=== PATIENT | male | born 1945 | race Caucasian/White ===

== ENCOUNTER → 2017-03-27 | Outpatient (CLI) | payer MEDICARE, BC ==
--- NOTE | 2017-03-27 11:42 | CT ---
EXAMINATION TYPE: CT brain wo con DATE OF EXAM: 03/27/2017 HISTORY: [facility] CT DLP: 1014.7 mGycm. Automated Exposure Control for Dose Reduction was Utilized. TECHNIQUE: CT scan of the head is performed without contrast. COMPARISON: CT brain September 23, 2014. FINDINGS: There is no acute intracranial hemorrhage or midline shift identified. There is diffuse v entricular and sulcal prominence consistent with diffuse age-related cerebral atrophy. The globes ar e intact and the visualized sinuses are clear. IMPRESSION: No acute intracranial hemorrhage or midline shift. There is mild diffuse age-related ce rebral atrophy redemonstrated. No significant change from prior study is seen.
== END | disposition home or self-care (01) ==
LOC: RADCTMAIN 11:05
PROVIDERS: ATTEND Internal Medicine
DX: G31.9 Degenerative disease of nervous system, unspecified (principal); R51 Headache
CPT/HCPCS: 70450

== ENCOUNTER → 2017-04-29 | Outpatient (CLI) | payer MEDICARE, BC ==
--- NOTE | 2017-04-29 14:18 | MR ---
EXAMINATION TYPE: MR shoulder LT wo con DATE OF EXAM: 04/29/2017 COMPARISON: Plain film dated 04/15/2017 HISTORY: Left shoulder pain TECHNIQUE: Multiplanar, multisequence imaging of the left shoulder is performed without contrast. FINDINGS: Rotator Cuff: There is rotator cuff tear with retraction to the level of the acromioclavicular joint. Acromioclavicular Joint: Hypertrophic changes present at the acromion clavicular joint Glenohumeral Joint: Intact Labrum: The labrum appears grossly intact given limitation of non-arthrogram study. Biceps Tendon: Displaced anteriorly. There is fluid signal present within the tendon sheath with some additional low-level internal debris suspected. Bone marrow signal: Pseudocysts present within the humeral head. Other: There is a joint effusion present. Fluid signal courses along the subscapularis tendon. Puncta te foci of intermediate signal present within the joint effusion may represent loose bodies. IMPRESSION: Rotator cuff tear with retraction. There may be small loose bodies. Dislocation of the long head of b iceps tendon.
== END | disposition home or self-care (01) ==
LOC: RADMRIMAIN 08:38
PROVIDERS: ATTEND Orthopaedic Surgery
DX: S43.005A Unspecified dislocation of left shoulder joint, initial encounter (principal); M75.102 Unspecified rotator cuff tear or rupture of left shoulder, not specified as traumatic

== ENCOUNTER → 2017-09-01 | Outpatient (CLI) | payer MEDICARE, BC ==
--- NOTE | 2017-09-01 15:54 | US ---
EXAMINATION TYPE: US kidneys/renal and bladder DATE OF EXAM: 09/01/2017 COMPARISON: CT 05/21/2013 CLINICAL HISTORY: 71-year-old male R31.9 Hematuria. TECHNIQUE: Multiple sonographic images of the kidneys and bladder were obtained. FINDINGS: Right Kidney: 11.5 x 5.6 x 5.6 cm without hydronephrosis. There is a 5 mm echogenic focus at the mid pole, likely nonobstructive calculus. Left Kidney: 11.5 x 6.3 x 6.0 cm without hydronephrosis. There is a septated cyst at the midpole bridget uring 1.8 x 1.8 x 2.0 cm. Additionally, echogenic foci are present just above measuring 10 x 8 x 5 mm . Bladder: Prostate gland is enlarged measuring 5.1 cm wide impressing on the posterior bladder base. T he ureteral jets are visualized. IMPRESSION: 1. No hydronephrosis. 2. Mildly complex cyst measuring 2.0cm left kidney. A lesion on CT from 2012, measured 1.6 cm. A la ign cyst is favored. 6 month follow-up ultrasound can reassess. 3. 5 mm echogenic focus in the right kidney and 1.0 cm in the left kidney suggestive of nonobstructiv e calculi. 4. Prostatomegaly (5.1 cm wide). Given impression onto the posterior bladder base, correlate for any symptoms of BPH.
== END | disposition home or self-care (01) ==
LOC: RADUSWWP 14:36
PROVIDERS: ATTEND Internal Medicine
DX: N28.1 Cyst of kidney, acquired (principal); N40.0 Benign prostatic hyperplasia without lower urinary tract symptoms
CPT/HCPCS: 76770

== ENCOUNTER 2017-10-02 07:54 | Emergency (ER) | payer MEDICARE, BC ==
[2017-10-02] MEDS ORDERED: SODIUM CHLORIDE 0.9% 1,000 ML IV STA (08:09)
--- NOTE | 2017-10-02 08:20 | ED ---
Dizziness HPI - General Chief Complaint: Syncope Stated Complaint: Syncope Time Seen by Provider: 10/02/17 07:58 Source: patient Mode of arrival: ambulatory Limitations: no limitations - History of Present Illness Initial Comments: 73 years old male was accompanying his , she is having a surgery today and Oanh Mosqueda he was with the family he was sitting at the time a family noticed that he is not responding he passed out in the chair and there was no fall he does have a history of passing out in the past and he does have a history of for atrial fibrillation he is an 8H and he is on now over verapamil his other medications include Flomax and Coumadin. On arrival to the ER he has a headache he feels pretty lethargic is able to talk on the monitor noticed that SH heart rate was 35 and his blood pressure was systolic was 68. Denied any chest pain admits to diaphoresis cold sweats and nausea no shortness of breath does not know the details of passing out denies any abdominal pain frequency urgency dysuria denies any symptoms of TIA or CVA - Related Data Home Medications Medication Instructions Recorded Confirmed Digoxin [Lanoxin] 250 mcg PO DAILY 09/23/14 10/02/17 Verapamil Sr [Isoptin Sr] 240 mg PO DAILY 09/23/14 10/02/17 Warfarin [Coumadin] 5 mg PO [id number] 09/23/14 10/02/17 Tamsulosin HCl [Flomax] 0.4 mg PO DAILY@199906/12/17 10/02/17 Warfarin [Coumadin] 2.5 mg PO GIORDANO 10/02/17 10/02/17 Allergies Allergy/AdvReac Type Severity Reaction Status Date / Time Iodinated Contrast- Oral and Allergy Unknown Verified 10/02/17 08:02 IV Dye Review of Systems ROS Statement: Those systems with pertinent positive or pertinent negative responses have been documented in the HPI. ROS Other: All systems not noted in ROS Statement are negative. Past Medical History Past Medical History: Atrial Fibrillation, Deep Vein Thrombosis (DVT), Prostate Disorder History of Any Multi-Drug Resistant Organisms: None Reported Past Surgical History: Back Surgery, Joint Replacement Additional Past Surgical History / Comment(s): eren knee replacement Past Anesthesia/Blood Transfusion Reactions: No Reported Reaction Past Psychological History: No Psychological Hx Reported Smoking Status: Never smoker Past Alcohol Use History: None Reported Past Drug Use History: None Reported - Past Family History Mother Family Medical History: No Reported History General Exam - General Exam Comments Initial Comments: General: The patient is rarely awake his eyes are closed he didn't answer the questions appropriately GCS is 15 Skin: Skin is warm and dry and diaphragmatic Eye: Pupils are equal, round and reactive to light, extra-ocular movements are intact; there is normal conjunctiva bilaterally. Ears, nose, mouth and throat: There are moist mucous membranes and no oral lesions. Neck: The neck is supple, there is no tenderness or JVD. Cardiovascular: There is very low, heart rate was 35 on the exam Respiratory: To auscultation bilateral air exchange bilaterally Gastrointestinal: Soft, non-distended, non-tender abdomen without masses or organomegaly noted. There is no rebound or guarding present. Bowel sounds are unremarkable. Back: There is no tenderness to palpation in the midline. There is no obvious deformity. Musculoskeletal: Normal ROM, no tenderness, There is no pedal edema. There is no calf tenderness or swelling. No cords were appreciated. Neurological: CN II-XII intact, Cranial nerves III through XII are intact. There are no obvious motor or sensory deficits. Coordination appears grossly intact. Speech is normal. Psychiatric: Cooperative, appropriate mood & affect, normal judgment. Limitations: no limitations Course Vital Signs 10/02/17 10/02/17 10/02/17 07:57 08:10 08:42 Pulse Rate 37 L 64 72 Respiratory 16 16 18 Rate Blood Pressure 68/30 106/56 106/61 O2 Sat by Pulse 97 99 95 Oximetry CBC, CMP, troponin, EKG are unremarkable - Reevaluation(s) Reevaluation #1: Patient is reassessed at term 820, he has a good color GCS is 15 he is feeling a lot better he had his blood work done he had his head CT done he feels back to himself now 10/02/17 08:42 Reevaluation #3: Head CT and chest x-ray are unremarkable EKG is unremarkable urine do orthostatic blood pressure check and see if he ambulates well ventricular discharge him vital signs improved tremendously, now they're normal 10/02/17 09:16 EKG Findings - EKG Comments: EKG Findings:: EKG is atrial fibrillation, ventricular rate is 73. NM interval , QRS duration is 78 QT/QTc is 370/412-lead aVF this EKG does not reveal any ST elevation or ST depression Medical Decision Making - Lab Data Result diagrams: 10/02/17 08:01 10/02/17 08:01 Lab Results 10/02/17 10/02/17 10/02/17 Range/Units 08:01 08:01 08:01 WBC 9.3 (3.8-10.6) k/uL RBC 5.20 (4.30-5.90) m/uL Hgb 14.6 (13.0-17.5) gm/dL Hct 45.0 (39.0-53.0) % MCV 86.6 (80.0-100.0) fL MCH 28.0 (25.0-35.0) pg MCHC 32.4 (31.0-37.0) g/dL RDW 14.3 (11.5-15.5) % Plt Count 305 (150-450) k/uL Neutrophils % 57 % Lymphocytes % 35 % Monocytes % 5 % Eosinophils % 1 % Basophils % 1 % Neutrophils # 5.3 (1.3-7.7) k/uL Lymphocytes # 3.3 (1.0-4.8) k/uL Monocytes # 0.5 (0-1.0) k/uL Eosinophils # 0.1 (0-0.7) k/uL Basophils # 0.0 (0-0.2) k/uL PT (9.0-12.0) sec INR (<1.2) APTT (22.0-30.0) sec Sodium 142 (137-145) mmol/L Potassium 4.5 (3.5-5.1) mmol/L Chloride 104 (98-107) mmol/L Carbon Dioxide 27 (22-30) mmol/L Anion Gap 11 mmol/L BUN 13 (9-20) mg/dL Creatinine 0.80 (0.66-1.25) mg/dL Est GFR (MDRD) Af Amer >60 (>60 ml/min/1.73 sqM) Est GFR (MDRD) Non-Af >60 (>60 ml/min/1.73 sqM) Glucose 137 H (74-99) mg/dL POC Glucose (mg/dL) (75-99) mg/dL POC Glu Casting Carrier ID Calcium 9.3 (8.4-10.2) mg/dL Total Bilirubin 0.6 (0.2-1.3) mg/dL AST 25 (17-59) U/L ALT 23 (21-72) U/L Alkaline Phosphatase 67 (38-126) U/L Total Creatine Kinase 90 (55-170) U/L CK-MB (CK-2) 1.3 (0.0-2.4) ng/mL CK-MB (CK-2) Rel Index 1.4 Troponin I <0.012 (0.000-0.034) ng/mL Total Protein 6.6 (6.3-8.2) g/dL Albumin 3.9 (3.5-5.0) g/dL 10/02/17 10/02/17 Range/Units 08:01 08:06 WBC (3.8-10.6) k/uL RBC (4.30-5.90) m/uL Hgb (13.0-17.5) gm/dL Hct (39.0-53.0) % MCV (80.0-100.0) fL MCH (25.0-35.0) pg MCHC (31.0-37.0) g/dL RDW (11.5-15.5) % Plt Count (150-450) k/uL Neutrophils % % Lymphocytes % % Monocytes % % Eosinophils % % Basophils % % Neutrophils # (1.3-7.7) k/uL Lymphocytes # (1.0-4.8) k/uL Monocytes # (0-1.0) k/uL Eosinophils # (0-0.7) k/uL Basophils # (0-0.2) k/uL PT 20.4 H (9.0-12.0) sec INR 2.3 H (<1.2) APTT 25.9 (22.0-30.0) sec Sodium (137-145) mmol/L Potassium (3.5-5.1) mmol/L Chloride (98-107) mmol/L Carbon Dioxide (22-30) mmol/L Anion Gap mmol/L BUN (9-20) mg/dL Creatinine (0.66-1.25) mg/dL Est GFR (MDRD) Af Amer (>60 ml/min/1.73 sqM) Est GFR (MDRD) Non-Af (>60 ml/min/1.73 sqM) Glucose (74-99) mg/dL POC Glucose (mg/dL) 128 H (75-99) mg/dL POC Glu Casting Carrier ID Rosie Mcelroy Calcium (8.4-10.2) mg/dL Total Bilirubin (0.2-1.3) mg/dL AST (17-59) U/L ALT (21-72) U/L Alkaline Phosphatase (38-126) U/L Total Creatine Kinase (55-170) U/L CK-MB (CK-2) (0.0-2.4) ng/mL CK-MB (CK-2) Rel Index Troponin I (0.000-0.034) ng/mL Total Protein (6.3-8.2) g/dL Albumin (3.5-5.0) g/dL Critical Care Time Total Critical Care Time: 30 Critical Care Time: 72 years old male was visiting a family member was going for a surgery he passed out R), and Irvin from the recovery area where he was visiting a family member brought him down here his heart rate was 37 his blood pressure was sligh 68 systolic over 30 on arrival to the ER he had become responsive was very diaphoretic pale he was seen before he was even register and removed from mom 52, room atropine 0.5 mg was ordered and the lumbar planing to put him on a dopamine drip IV was started and within seconds 1 L infusion 1 L normal saline was started soon after that he turned around and denies blood pressure improved and now and by the time of able to do this EKG artery Trileptal was 70 we held off the atropine dopamine. He has a history of atrial fibrillation and he passed out he is on a Coumadin and begin her do a head CT to make sure there was no bleed is also cannot do the PT and INR and troponin considering her multiple risk factors like him being 72. Known cardiac history Disposition Clinical Impression: Syncope, Bradycardia, Hypertension, Vasovagal episode Disposition: HOME SELF-CARE Condition: Good Referrals: Kalyani Carranza MD [Primary Care Provider] - 1-2 days
[2017-10-02 08:22] LABS: Glucose,Whole Blood 128 mg/dL (75-99)
[2017-10-02 08:27] LABS: Basophils % (A) 1 %; Eosinophils # (A) 0.1 k/uL (0-0.7); Eosinophils % (A) 1 %; HGB 14.6 gm/dL (13.0-17.5); Lymphocytes # (A) 3.3 k/uL (1.0-4.8); Lymphocytes % (A) 35 %; MCHC 32.4 g/dL (31.0-37.0); MCV 86.6 fL (80.0-100.0); Mean Platelet Volume 7.7; Monocytes # (A) 0.5 k/uL (0-1.0); Monocytes % (A) 5 %; Neutrophils # (A) 5.3 k/uL (1.3-7.7); Neutrophils % (A) 57 %; Platelet Count 305 k/uL (150-450); RDW 14.3 % (11.5-15.5); WBC 9.3 k/uL (3.8-10.6)
[2017-10-02 08:35] LABS: ALT 23 U/L (21-72); AST 25 U/L (17-59); Albumin 3.9 g/dL (3.5-5.0); Alkaline Phosphatase 67 U/L (38-126); Anion Gap 11 mmol/L; Blood Urea Nitrogen 13 mg/dL (9-20); Calcium 9.3 mg/dL (8.4-10.2); Carbon Dioxide 27 mmol/L (22-30); Chloride 104 mmol/L (98-107); Glucose 137 mg/dL (74-99); Potassium 4.5 mmol/L (3.5-5.1); Sodium 142 mmol/L (137-145); Total Bilirubin 0.6 mg/dL (0.2-1.3); Total Protein 6.6 g/dL (6.3-8.2)
[2017-10-02 08:36] LABS: INR 2.3 (<1.2); Partial Thromboplastin Time 25.9 sec (22.0-30.0); Prothrombin Time 20.4 sec (9.0-12.0)
[2017-10-02 08:49] LABS: Creatine Kinase 90 U/L (55-170)
--- NOTE | 2017-10-02 08:52 | CT ---
EXAMINATION TYPE: CT brain wo con DATE OF EXAM: 10/02/2017 COMPARISON: Prior CT brain 03/27/2017 HISTORY: syncopal episode today CT DLP: 1029.9 mGycm Automated exposure control for dose reduction was used. Helical imaging through the brain FINDINGS: There is no interval change. No hemorrhage or hydrocephalus. Calvarium is intact. White matter low-at tenuation periventricular location is stable. Cerebral vascular calcifications are present. No mass e ffect. IMPRESSION: STABLE EXAM, NO ACUTE ABNORMALITY
--- NOTE | 2017-10-02 08:54 | XR ---
EXAMINATION TYPE: XR chest 2V DATE OF EXAM: 10/02/2017 COMPARISON: Prior chest x-ray 09/23/2014 HISTORY: Syncope TECHNIQUE: Frontal and lateral views of the chest are obtained on 3 images. FINDINGS: There is no focal air space opacity, pleural effusion, or pneumothorax seen. The cardiac silhouette size is stable and enlarged. Linear focus of increased attenuation present at the lung b ase likely reflects atelectasis or scar. There are overlying cardiac leads. The osseous structures ar e intact. IMPRESSION: No acute cardiopulmonary process. Stable cardiomegaly.
[2017-10-02 09:01] LABS: Creatine Kinase MB 1.3 ng/mL (0.0-2.4); Troponin I <0.012 ng/mL (0.000-0.034)
[2017-10-02 09:23] LABS: Digoxin 1.3 ng/mL
[2017-10-02 10:09] VITALS: BP 124/57; PULSE 88; RESP 16
== END 2017-10-02 10:09 | disposition home or self-care (01) ==
LOC: EC 07:54
DX: I10 Essential (primary) hypertension (principal); R55 Syncope and collapse; R00.1 Bradycardia, unspecified; I48.91 Unspecified atrial fibrillation; R40.2412 Glasgow coma scale score 13-15, at arrival to emergency department; Z86.718 Personal history of other venous thrombosis and embolism; Z96.653 Presence of artificial knee joint, bilateral; Z79.01 Long term (current) use of anticoagulants; Z79.899 Other long term (current) drug therapy; Z91.041 Radiographic dye allergy status
CPT/HCPCS: 36415; 70450; 71046; 80053; 80162; 82550; 82553; 84484; 85025; 85610; 85730; 93005; 96360; 96361; 99285

== ENCOUNTER → 2018-05-26 | Outpatient (CLI) | payer MEDICARE, BC ==
--- NOTE | 2018-05-26 15:47 | US ---
EXAMINATION TYPE: US kidneys/renal and bladder DATE OF EXAM: 05/26/2018 COMPARISON: CT abdomen and pelvis May 21, 2013 CLINICAL HISTORY: N28.1 Cyst of kidney, acquired. EXAM MEASUREMENTS: Right Kidney: 10.2 x 5.2 x 4.2 cm Left Kidney: 10.5 x 5.1 x 4.6 cm Post Void Residual Volume: 93 mL GB hypoechoic mobile suspect nonshadowing calculus Right Kidney: small echogenic area 0.6 cm stable small; cyst lateral 1.1 x 0.8 x 0.9 cm Left Kidney: small echogenic area 0.5 x 0.3 x 0.7 cm, small septated cyst 1.8 x 1.[address] able from prior Bladder: wnl enlarged prostate Bilateral Jets seen: Yes Normal Post Void Residual: No There is no evidence for hydronephrosis at this point in time. Roughly 9 mm simple appearing cyst mi d pole level is present in right kidney. There is demonstration of 5 mm nonshadowing hyperechoic focu s likely correlating with nonobstructing calculus on CT. In left kidney there is exophytic 1.8 cm hyp oechoic to anechoic lesion likely reflecting simple cyst corresponding to CT lesion from 2013. There is 4 x 3 mm nonshadowing hyperechoic focus mid to lower pole level laterally likely reflecting new no nobstructing calculus The urinary bladder is somewhat poorly distended. Prominent prostate gland is bulging on bladder base likely reflective of underlying BPH. Abnormal post void residual is noted whi ch correlates. Bilateral ureteral jets are seen. IMPRESSION: Stable size of exophytic lesion left kidney likely reflecting simple appearing cyst though not comple tely anechoic on ultrasound lack of growth from 2013 CT would strongly favor benign. Bilateral nephro lithiasis suspected currently. No hydronephrosis is seen. Enlarged prostate gland redemonstrated.
== END ==
LOC: RADUSWWP 14:53
PROVIDERS: ATTEND Internal Medicine
DX: N28.89 Other specified disorders of kidney and ureter (principal); N40.0 Benign prostatic hyperplasia without lower urinary tract symptoms
CPT/HCPCS: 76770

== ENCOUNTER 2018-06-12 14:09 | Observation (INO) | payer MEDICARE, BC ==
[2018-06-12] MEDS ORDERED: ASPIRIN 81 MG PO STA (14:31)
[2018-06-12] MEDS ORDERED: NITROGLYCERIN OINT 1 INCH/GM PACKET TOPICAL STA (14:31)
--- NOTE | 2018-06-12 14:33 | ED ---
General Adult HPI - General Chief complaint: Chest Pain Stated complaint: Chest discomfort Time Seen by Provider: 06/12/18 14:26 Source: patient, family, RN notes reviewed Mode of arrival: wheelchair Limitations: no limitations - History of Present Illness Initial comments: Patient is a pleasant 72-year-old male presenting to the emergency Department with complaints of chest discomfort. Symptoms have been intermittent over the past couple months. Patient has some mild tightness or a twinge in his left upper chest. Patient does have associated dyspnea. Patient at times feels nauseated or diaphoretic. Discomfort has been mild. Discomfort is mild at this time. Patient has a known history of atrial fibrillation. - Related Data Home Medications Medication Instructions Recorded Confirmed Digoxin [Lanoxin] 250 mcg PO DAILY 09/23/14 06/12/18 Verapamil Sr [Isoptin Sr] 240 mg PO DAILY 09/23/14 06/12/18 Warfarin [Coumadin] 5 mg PO SUTUWETHSA 09/23/14 06/12/18 Tamsulosin HCl [Flomax] 0.4 mg PO DAILY@199906/12/17 06/12/18 Warfarin [Coumadin] 2.5 mg PO MOFR 10/02/17 06/12/18 Allergies Allergy/AdvReac Type Severity Reaction Status Date / Time Iodinated Contrast- Oral and Allergy Unknown Verified 06/12/18 14:35 IV Dye Review of Systems ROS Statement: Those systems with pertinent positive or pertinent negative responses have been documented in the HPI. ROS Other: All systems not noted in ROS Statement are negative. Constitutional: Denies: fever Eyes: Denies: eye pain ENT: Denies: ear pain Respiratory: Reports: as per HPI, dyspnea. Denies: cough Cardiovascular: Reports: as per HPI, chest pain, palpitations Endocrine: Reports: fatigue Gastrointestinal: Reports: as per HPI. Denies: abdominal pain Genitourinary: Denies: dysuria Musculoskeletal: Denies: back pain Skin: Denies: rash Neurological: Denies: weakness Past Medical History Past Medical History: Atrial Fibrillation, Deep Vein Thrombosis (DVT), Prostate Disorder History of Any Multi-Drug Resistant Organisms: None Reported Past Surgical History: Back Surgery, Joint Replacement Additional Past Surgical History / Comment(s): eren knee replacement Past Anesthesia/Blood Transfusion Reactions: No Reported Reaction Past Psychological History: No Psychological Hx Reported Smoking Status: Never smoker Past Alcohol Use History: None Reported Past Drug Use History: None Reported - Past Family History Mother Family Medical History: No Reported History General Exam Limitations: no limitations General appearance: alert, in no apparent distress Head exam: Present: atraumatic Eye exam: Present: normal appearance, PERRL ENT exam: Present: normal oropharynx Neck exam: Present: normal inspection Respiratory exam: Present: normal lung sounds bilaterally. Absent: chest wall tenderness Cardiovascular Exam: Present: irregular rhythm Expanded Peripheral pulses: 2+: Radial (R), Radial (L), Dorsalis Pedis (R), Dorsalis Pedis (L) GI/Abdominal exam: Present: soft. Absent: tenderness Extremities exam: Present: normal inspection. Absent: pedal edema, calf tenderness Neurological exam: Present: alert Psychiatric exam: Present: normal affect, normal mood Skin exam: Present: normal color Course Vital Signs 06/12/18 06/12/18 06/12/18 14:14 14:25 14:30 Temperature 97.4 F L Pulse Rate 117 H 90 Respiratory 18 8 L Rate Blood Pressure 135/64 146/78 O2 Sat by Pulse 99 97 99 Oximetry 06/12/18 06/12/18 06/12/18 15:00 15:30 16:00 Temperature Pulse Rate 73 73 63 Respiratory 24 14 9 L Rate Blood Pressure 139/65 130/91 128/68 O2 Sat by Pulse 95 97 97 Oximetry EKG Findings - EKG Comments: EKG Findings:: A. fib with rate of 89. QRS 76. QT 358. QTC 435. Normal axis. Normal QRS. No acute ST change. Medical Decision Making - Medical Decision Making Patient reevaluated and resting comfortably in bed. Patient and family updated on results and plan. Case was discussed in detail with Dr. Duarte, who will admit for Dr. Carranza. - Lab Data Result diagrams: 06/12/18 14:43 06/12/18 14:43 Lab Results 06/12/18 06/12/18 06/12/18 Range/Units 14:43 14:43 14:43 WBC 7.0 (3.8-10.6) k/uL RBC 5.28 (4.30-5.90) m/uL Hgb 14.8 (13.0-17.5) gm/dL Hct 45.9 (39.0-53.0) % MCV 86.8 (80.0-100.0) fL MCH 28.0 (25.0-35.0) pg MCHC 32.2 (31.0-37.0) g/dL RDW 14.8 (11.5-15.5) % Plt Count 291 (150-450) k/uL Neutrophils % 68 % Lymphocytes % 24 % Monocytes % 5 % Eosinophils % 2 % Basophils % 0 % Neutrophils # 4.8 (1.3-7.7) k/uL Lymphocytes # 1.7 (1.0-4.8) k/uL Monocytes # 0.4 (0-1.0) k/uL Eosinophils # 0.1 (0-0.7) k/uL Basophils # 0.0 (0-0.2) k/uL PT (9.0-12.0) sec INR (<1.2) APTT (22.0-30.0) sec Sodium 140 (137-145) mmol/L Potassium 4.2 (3.5-5.1) mmol/L Chloride 107 (98-107) mmol/L Carbon Dioxide 25 (22-30) mmol/L Anion Gap 8 mmol/L BUN 18 (9-20) mg/dL Creatinine 0.75 (0.66-1.25) mg/dL Est GFR (CKD-EPI)AfAm >90 (>60 ml/min/1.73 sqM) Est GFR (CKD-EPI)NonAf >90 (>60 ml/min/1.73 sqM) Glucose 147 H (74-99) mg/dL Calcium 9.3 (8.4-10.2) mg/dL Magnesium 2.3 (1.6-2.3) mg/dL Total Bilirubin 0.6 (0.2-1.3) mg/dL AST 31 (17-59) U/L ALT 26 (21-72) U/L Alkaline Phosphatase 63 (38-126) U/L Total Creatine Kinase 152 (55-170) U/L CK-MB (CK-2) 2.7 H (0.0-2.4) ng/mL CK-MB (CK-2) Rel Index 1.8 Troponin I <0.012 (0.000-0.034) ng/mL Total Protein 7.0 (6.3-8.2) g/dL Albumin 3.9 (3.5-5.0) g/dL Digoxin ng/mL 06/12/18 06/12/18 Range/Units 14:43 14:43 WBC (3.8-10.6) k/uL RBC (4.30-5.90) m/uL Hgb (13.0-17.5) gm/dL Hct (39.0-53.0) % MCV (80.0-100.0) fL MCH (25.0-35.0) pg MCHC (31.0-37.0) g/dL RDW (11.5-15.5) % Plt Count (150-450) k/uL Neutrophils % % Lymphocytes % % Monocytes % % Eosinophils % % Basophils % % Neutrophils # (1.3-7.7) k/uL Lymphocytes # (1.0-4.8) k/uL Monocytes # (0-1.0) k/uL Eosinophils # (0-0.7) k/uL Basophils # (0-0.2) k/uL PT 15.8 H (9.0-12.0) sec INR 1.7 H (<1.2) APTT 27.1 (22.0-30.0) sec Sodium (137-145) mmol/L Potassium (3.5-5.1) mmol/L Chloride (98-107) mmol/L Carbon Dioxide (22-30) mmol/L Anion Gap mmol/L BUN (9-20) mg/dL Creatinine (0.66-1.25) mg/dL Est GFR (CKD-EPI)AfAm (>60 ml/min/1.73 sqM) Est GFR (CKD-EPI)NonAf (>60 ml/min/1.73 sqM) Glucose (74-99) mg/dL Calcium (8.4-10.2) mg/dL Magnesium (1.6-2.3) mg/dL Total Bilirubin (0.2-1.3) mg/dL AST (17-59) U/L ALT (21-72) U/L Alkaline Phosphatase (38-126) U/L Total Creatine Kinase (55-170) U/L CK-MB (CK-2) (0.0-2.4) ng/mL CK-MB (CK-2) Rel Index Troponin I (0.000-0.034) ng/mL Total Protein (6.3-8.2) g/dL Albumin (3.5-5.0) g/dL Digoxin 0.7 ng/mL - Radiology Data Radiology results: image reviewed (Chest x-ray reveals no acute process) Disposition Clinical Impression: Chest pain Disposition: ADMITTED IP TO THIS HOSP Is patient prescribed a controlled substance at d/c from ED?: No Referrals: Kalyani Carranza MD [Primary Care Provider] - 1-2 days Decision Time: 16:41
[2018-06-12 14:59] LABS: Basophils % (A) 0 %; Eosinophils # (A) 0.1 k/uL (0-0.7); Eosinophils % (A) 2 %; HCT 45.9 % (39.0-53.0); HGB 14.8 gm/dL (13.0-17.5); Lymphocytes # (A) 1.7 k/uL (1.0-4.8); Lymphocytes % (A) 24 %; MCHC 32.2 g/dL (31.0-37.0); MCV 86.8 fL (80.0-100.0); Mean Platelet Volume 7.4; Monocytes # (A) 0.4 k/uL (0-1.0); Monocytes % (A) 5 %; Neutrophils # (A) 4.8 k/uL (1.3-7.7); Neutrophils % (A) 68 %; Platelet Count 291 k/uL (150-450); RBC 5.28 m/uL (4.30-5.90); RDW 14.8 % (11.5-15.5)
[2018-06-12 15:07] LABS: INR 1.7 (<1.2); Partial Thromboplastin Time 27.1 sec (22.0-30.0); Prothrombin Time 15.8 sec (9.0-12.0)
[2018-06-12 15:09] LABS: ALT 26 U/L (21-72); AST 31 U/L (17-59); Albumin 3.9 g/dL (3.5-5.0); Alkaline Phosphatase 63 U/L (38-126); Anion Gap 8 mmol/L; Blood Urea Nitrogen 18 mg/dL (9-20); Calcium 9.3 mg/dL (8.4-10.2); Carbon Dioxide 25 mmol/L (22-30); Chloride 107 mmol/L (98-107); Glucose 147 mg/dL (74-99); Magnesium 2.3 mg/dL (1.6-2.3); Potassium 4.2 mmol/L (3.5-5.1); Sodium 140 mmol/L (137-145); Total Bilirubin 0.6 mg/dL (0.2-1.3)
--- NOTE | 2018-06-12 15:13 | XR ---
EXAMINATION TYPE: XR chest 2V DATE OF EXAM: 06/12/2018 COMPARISON: Prior chest x-ray 10/02/2017 HISTORY: Chest pain TECHNIQUE: Frontal and lateral views of the chest are obtained. FINDINGS: There are overlying cardiac leads. Patient is rotated. Strand-like areas of increased atten uation at the lung bases may reflect atelectasis or scarring. There is no focal air space opacity, pl eural effusion, or pneumothorax seen. The cardiac silhouette size is stable. The osseous structure s are intact. IMPRESSION: No acute cardiopulmonary process.
[2018-06-12 15:28] LABS: Creatine Kinase 152 U/L (55-170)
[2018-06-12 15:40] LABS: Creatine Kinase MB 2.7 ng/mL (0.0-2.4); Troponin I <0.012 ng/mL (0.000-0.034)
[2018-06-12] MEDS ORDERED: NITROGLYCERIN SL TABS 0.4 MG TAB SUBLINGUAL PRN (16:42)
[2018-06-12] MEDS ORDERED: WARFARIN 2.5 MG TAB PO SCH (18:00)
[2018-06-12 18:21] VITALS: BMI 31.0
[2018-06-12] MEDS ORDERED: TAMSULOSIN 0.4 MG CAP.ER.24H PO SCH (20:00)
[2018-06-12 21:07] LABS: Creatine Kinase 115 U/L (55-170)
[2018-06-12 21:17] LABS: Creatine Kinase MB 1.9 ng/mL (0.0-2.4); Troponin I <0.012 ng/mL (0.000-0.034)
[2018-06-12 23:37] VITALS: TEMP 97.8
[2018-06-12] MEDS: NITROGLYCERIN OINT 1 INCH/GM PACKET TOPICAL SCH (23:52)
[2018-06-13] MEDS: NITROGLYCERIN OINT 1 INCH/GM PACKET TOPICAL SCH (03:19)
[2018-06-13 03:49] LABS: Cholesterol 142 mg/dL (<200); HDL Cholesterol 44 mg/dL (40-60); LDL Cholesterol,Calculated 85 mg/dL (0-99); Triglycerides 67 mg/dL (<150)
[2018-06-13 03:57] LABS: Creatine Kinase 100 U/L (55-170)
[2018-06-13 04:11] LABS: Creatine Kinase MB 1.5 ng/mL (0.0-2.4); Troponin I <0.012 ng/mL (0.000-0.034)
[2018-06-13] MEDS ORDERED: ACETAMINOPHEN TAB 325 MG TAB PO PRN (07:16)
--- NOTE | 2018-06-13 08:41 | CONS ---
CONSULTATION Mr. Sepulveda is a 72-year-old male with known history of chronic persistent atrial fibrillation, history of hypertension who presented with symptoms of chest discomfort. On April 09, while working outside in the hot weather, he had a syncopal episode. He took some salt and then started to feel better. Since that time, he has some tingling feeling in the chest, not persistent and not always activity related. He is active usually without significant symptoms. He has some more tingling yesterday in the chest and came into the emergency room. He did not have any associated dyspnea. No palpitation. He has occasional dizziness. No further syncope. No PND, orthopnea, or peripheral edema. His coronary risk factors are remarkable for hypertension, he is nondiabetic, nonsmoker. MEDICATION: At home include Coumadin, verapamil SR 240 mg daily, Flomax 0.4 mg daily, and digoxin 0.25 mg daily. REVIEW OF SYSTEMS: RESPIRATORY system: He has no recent wheezing. No cough. No history of obstructive lung disease. GI system: No recent GI bleed. No peptic ulcer disease. system: No dysuria or hematuria. Nervous system: No stroke or seizure. PHYSICAL EXAMINATION: 72-year-old male, alert, oriented, in no apparent distress. Blood pressure 103/60 with a heart in the 80s. HEAD: Normocephalic. Eyes sclerae anicteric. Neck good carotid upstroke. No bruit. No jugular venous distention. Lungs clear to auscultation. Heart irregularly irregular, S1, S2. No S3 with a systolic murmur heard at the base. No diastolic murmur. No rub. ABDOMEN: Soft, nontender. Positive bowel sounds. No megaly. EXTREMITIES: No edema. Intact distal pulses. LAB DATA: Lab data revealed troponin less than 0.012 for 3 samples. Cholesterol 142, LDL of 85, BUN and creatinine of 18 and 0.75. INR 1.7. Hemoglobin of 14.8. EKG revealed atrial fibrillation with nonspecific ST-T wave changes. Chest x-ray shows no acute changes. IMPRESSION: 1. Chest discomfort, has atypical features for ischemic heart disease probably noncardiac. 2. Chronic persistent atrial fibrillation, anticoagulated, subtherapeutic at this point. 3. History of hypertension. RECOMMENDATIONS: From the cardiac standpoint, he should be able to be discharged home and followed as an outpatient. Thank you for this consult. We will follow with you. MMMARTINL / IJN: [id number] /
[2018-06-13 08:46] VITALS: BP 122/69; PULSE 98; RESP 16
[2018-06-13] MEDS ORDERED: DIGOXIN 250 MCG TAB PO SCH (09:00)
[2018-06-13] MEDS ORDERED: ASPIRIN 325 MG TAB PO SCH (09:00)
[2018-06-13] MEDS ORDERED: VERAPAMIL SR 240 MG TABLET.ER PO SCH (09:00)
--- NOTE | 2018-06-13 11:03 | P.HPIM ---
History of Present Illness H&P Date: 06/13/18 Chief Complaint: Chest pain HISTORY AND PHYSICAL AND DISCHARGE SUMMARY: This is a 72-year-old male patient of Dr. Carranza. Dr. Carlos with past medical history of chronic atrial fibrillation, benign prostatic hypertrophy, DVT at age 27. Patient gives history of having discomfort of the left side of his chest that feels strange, and almost electrical. He has a little nausea and feeling tired. Symptoms started when he was outside working and raking. He denies any cough, sputum production. He denies any hemoptysis. No blood in the stools. He also complains of neck pain to the posterior area. He also gives history of obstructive sleep apnea on CPAP in the past but is able to tolerate due to sinus trouble, heart catheterization done about 5 years ago with no significant coronary artery disease per patient. Patient came into [facility] emergency center for evaluation. He has had 3 negative troponins. Triglycerides 67, cholesterol 142, LDL 85 and HDL 44. Digoxin level was 0.7. INR 1.7. CBC, electrolytes, kidney function and liver function tests all within normal limits. Chest x-ray shows no acute cardio pulmonary finding. Patient was seen by Dr. Carlos with recommendations to be discharged home and follow up with Dr. Carlos on Friday with possible stress test. Patient will be discharged home today in stable condition. Discharge Medication List Digoxin [Lanoxin] 250 mcg PO DAILY 09/23/14 [History] Verapamil Sr [Isoptin Sr] 240 mg PO DAILY 09/23/14 [History] Warfarin [Coumadin] 5 mg PO SUTUWETHSA 09/23/14 [History] Tamsulosin HCl [Flomax] 0.4 mg PO DAILY@199906/12/17 [History] Warfarin [Coumadin] 2.5 mg PO MOFR 10/02/17 [History] Diclofenac Sodium Gel [Voltaren Gel] 2 gm TOPICAL QID #1 tube 06/13/18 [Rx] Review of Systems All systems: negative Constitutional: Reports fatigue, Denies anorexia, Denies chills, Denies fever, Denies lethargy, Denies night sweats, Denies poor appetite, Denies weakness, Denies weight loss Eyes: denies blurred vision, denies pain Ears, nose, mouth and throat: Denies dysphagia, Denies headache, Denies sore throat, Denies vertigo Cardiovascular: Reports chest pain, Denies decreased exercise tolerance, Denies dyspnea on exertion, Denies leg edema, Denies shortness of breath, Denies syncope Respiratory: Denies cough Gastrointestinal: Reports nausea, Denies abdominal pain, Denies diarrhea, Denies loss of appetite, Denies melena, Denies vomiting Genitourinary: Denies dysuria Musculoskeletal: Denies myalgias Integumentary: Denies pruritus, Denies rash, Denies wounds Neurological: Denies confusion, Denies gait dysfunction, Denies numbness, Denies weakness Psychiatric: Denies anxiety, Denies depression Endocrine: Denies fatigue, Denies weight change Past Medical History Past Medical History: Atrial Fibrillation, Deep Vein Thrombosis (DVT), Prostate Disorder History of Any Multi-Drug Resistant Organisms: None Reported Past Surgical History: Back Surgery, Heart Catheterization, Joint Replacement Additional Past Surgical History / Comment(s): eren knee replacement Past Anesthesia/Blood Transfusion Reactions: No Reported Reaction Past Psychological History: No Psychological Hx Reported Smoking Status: Never smoker Past Alcohol Use History: None Reported Additional Past Alcohol Use History / Comment(s): Patient is a lifelong nonsmoker, no illicit drug use, occasional alcohol use. He has had his CPAP in the past but was unable to tolerate it due to sinus problems. Past Drug Use History: None Reported - Past Family History Mother Family Medical History: No Reported History Additional Family Medical History / Comment(s): Mother is with history of coronary artery disease and borderline diabetes. No history of cancers or strokes. Father Additional Family Medical History / Comment(s): Father is with history of coronary artery disease. No stroke or cancer. Brother(s) Additional Family Medical History / Comment(s): Patient had 2 brothers and one is from coronary artery disease and one from Parkinson's disease. Patient has 4 sisters and one has coronary artery disease. Patient has 3 sons with no major medical problems and no daughters. Medications and Allergies Home Medications Medication Instructions Recorded Confirmed Type Digoxin [Lanoxin] 250 mcg PO DAILY 09/23/14 06/12/18 History Verapamil Sr [Isoptin Sr] 240 mg PO DAILY 09/23/14 06/12/18 History Warfarin [Coumadin] 5 mg PO SUTUWETHSA 09/23/14 06/12/18 History Tamsulosin HCl [Flomax] 0.4 mg PO DAILY@2000 06/12/17 06/12/18 History Warfarin [Coumadin] 2.5 mg PO MOFR 10/02/17 06/12/18 History Diclofenac Sodium Gel [Voltaren 2 gm TOPICAL QID #1 tube 06/13/18 Rx Gel] Allergies Allergy/AdvReac Type Severity Reaction Status Date / Time Iodinated Contrast- Oral and Allergy Unknown Verified 06/12/18 14:35 IV Dye Physical Exam Vitals: Vital Signs Temp Pulse Pulse Resp BP BP Pulse Ox 06/13/18 08:00 97.8 F 98 16 122/69 96 06/13/18 03:20 97.8 F 81 18 103/60 94 L 06/12/18 23:34 97.8 F 92 18 113/55 95 06/12/18 20:00 97.5 F L 84 18 137/52 95 06/12/18 17:28 97.6 F 87 18 146/67 98 06/12/18 16:00 63 16 128/68 97 06/12/18 15:30 73 14 130/91 97 06/12/18 15:00 73 24 139/65 95 06/12/18 14:30 90 18 146/78 99 06/12/18 14:25 97 06/12/18 14:14 97.4 F L 117 H 18 135/64 99 Intake and Output 06/12/18 06/13/18 06/13/18 22:59 06:59 14:59 Intake Total 200 Balance 200 Intake: Oral 200 Other: Voiding Method Toilet # Voids 1 Weight 95.254 kg Gen: This is a 72-year-old male patient. He is sitting up in a chair in the room and appears to be comfortable and in no acute distress. HEENT: Head is atraumatic, normocephalic. Pupils equal, round. Sclerae is anicteric. Conjunctiva pink. Because members of the mouth are moist. NECK: Supple. No JVD. No lymphadenopathy. No thyromegaly. Positive tenderness to the posterior muscular area. LUNGS: Clear to auscultation. No wheezes or rhonchi. No intercostal retractions. HEART: Irregular rate and rhythm. Systolic murmur. No chest wall tenderness. ABDOMEN: Soft. Bowel sounds are present. No masses. No tenderness. EXTREMITIES: No pedal edema. No calf tenderness. NEUROLOGICAL: Patient is awake, alert and oriented x3. Cranial nerves 2 through 12 are grossly intact. Results CBC & Chem 7: 06/12/18 14:43 06/12/18 14:43 Labs: Abnormal Lab Results - Last 24 Hours (Table) 06/12/18 06/12/18 06/12/18 Range/Units 14:43 14:43 14:43 PT 15.8 H (9.0-12.0) sec INR 1.7 H (<1.2) Glucose 147 H (74-99) mg/dL CK-MB (CK-2) 2.7 H (0.0-2.4) ng/mL Thrombosis Risk Factor Assmnt - Choose All That Apply Any of the Below Risk Factors Present?: Yes Each Factor Represents 1 point: Obesity (BMI >25) Other Risk Factors: Yes Each Risk Factor Represents 2 Points: Age 61-74 years Other congenital or acquired thrombophilia - If yes, enter type in comment: No Thrombosis Risk Factor Assessment Total Risk Factor Score: 3 Thrombosis Risk Factor Assessment Level: Moderate Risk Assessment and Plan Plan: 1. Left-sided chest pain with normal. Patient has been cleared for discharge by Dr. Carlos with plan to follow up on Friday in the office. Aspirin added by Dr. Carlos. 2. Chronic atrial fibrillation. Continue digoxin, verapamil, Coumadin. 3. Neck pain secondary to muscle strain. Voltaren gel added. Patient placed on the observation unit. Discharge plan: Home Impression and plan of care have been directed as dictated by the signing physician. Sara Fleming nurse practitioner acting as scribe for signing physician.
[2018-06-13] MEDS ORDERED: WARFARIN 5 MG TAB PO SCH (18:00)
== END 2018-06-13 11:06 | disposition home or self-care (01) ==
LOC: EC 14:09 → 1SOBS 16:43
PROVIDERS: ADMIT Family Medicine; ATTEND Family Medicine
DX: R07.89 Other chest pain (principal); I48.1 Persistent atrial fibrillation; I48.2 Chronic atrial fibrillation; S16.1XXA Strain of muscle, fascia and tendon at neck level, initial encounter; I10 Essential (primary) hypertension; R11.0 Nausea; N40.0 Benign prostatic hyperplasia without lower urinary tract symptoms; G47.33 Obstructive sleep apnea (adult) (pediatric); E66.9 Obesity, unspecified; Z68.31 Body mass index [BMI] 31.0-31.9, adult; Z99.89 Dependence on other enabling machines and devices; Z79.01 Long term (current) use of anticoagulants; Z79.899 Other long term (current) drug therapy; Z91.041 Radiographic dye allergy status; Z96.653 Presence of artificial knee joint, bilateral; Z86.718 Personal history of other venous thrombosis and embolism; Z82.49 Family history of ischemic heart disease and other diseases of the circulatory system; Z82.0 Family history of epilepsy and other diseases of the nervous system; X58.XXXA Exposure to other specified factors, initial encounter
CPT/HCPCS: 99285; 36415; 93005; 80061; 80053; 82550 ×2; 82553 ×2; 80162; 83735; 84484 ×2; 85025; 85610; 85730; 71046; G0378 ×2

== ENCOUNTER → 2018-07-14 | Outpatient (CLI) | payer MEDICARE, BC ==
[2018-07-14 08:51] LABS: HCT 45.2 % (39.0-53.0); HGB 14.8 gm/dL (13.0-17.5); MCH 28.4 pg (25.0-35.0); MCHC 32.7 g/dL (31.0-37.0); MCV 86.7 fL (80.0-100.0); Mean Platelet Volume 7.5; Platelet Count 265 k/uL (150-450); RBC 5.22 m/uL (4.30-5.90); RDW 14.6 % (11.5-15.5); WBC 6.7 k/uL (3.8-10.6)
[2018-07-14 08:55] LABS: INR 2.3 (<1.2); Prothrombin Time 20.3 sec (9.0-12.0)
[2018-07-14 09:23] LABS: Anion Gap 7 mmol/L; Blood Urea Nitrogen 18 mg/dL (9-20); Carbon Dioxide 29 mmol/L (22-30); Chloride 106 mmol/L (98-107); Potassium 4.7 mmol/L (3.5-5.1); Sodium 142 mmol/L (137-145)
== END | disposition home or self-care (01) ==
LOC: LABPAT 08:10
PROVIDERS: ATTEND Internal Medicine Interventional Cardiology
DX: Z01.812 Encounter for preprocedural laboratory examination (principal); I25.10 Atherosclerotic heart disease of native coronary artery without angina pectoris; I48.1 Persistent atrial fibrillation; R07.9 Chest pain, unspecified; Z79.01 Long term (current) use of anticoagulants
CPT/HCPCS: 36415; 80051; 82565; 84520; 85027; 85610

== ENCOUNTER 2018-07-23 09:20 | Day surgery (SDC) | payer MEDICARE, BC ==
[2018-07-20 15:25] VITALS: BMI 31.0
[~2018-07-23 09:20] MED LIST: ALPRAZolam 0.25 MG TAB PO PRN; ASPIRIN 325 MG TAB PO ONE; NITROGLYCERIN SL TABS 0.4 MG TAB SUBLINGUAL PRN; SODIUM CHLORIDE 0.9% 1,000 ML in EMPTY BAG 1 BAG IV ONE
[2018-07-23 09:44] VITALS: TEMP 97.5
[2018-07-23] MEDS ORDERED: ATROPINE SULFATE 0.1 MG/ML 10ML SYRINGE IVP ONE (09:57)
[2018-07-23 10:09] LABS: INR 1.1 (<1.2); Prothrombin Time 11.8 sec (9.0-12.0)
[2018-07-23 10:14] LABS: Glucose,Whole Blood 127 mg/dL (75-99)
[2018-07-23] MEDS ORDERED: SODIUM CHLORIDE 0.9% 1,000 ML IV SCH ×2 (10:15→12:15)
[2018-07-23] MEDS ORDERED: fentaNYL (PF) 50 MCG/ML 2 ML AMP ONE (11:07)
[2018-07-23] MEDS ORDERED: HEPARIN SODIUM 1,000 UN/ML (10ML VL) ONE (11:07)
[2018-07-23] MEDS ORDERED: VERAPAMIL 2.5 MG/ML 2 ML AMP ONE (11:07)
[2018-07-23] MEDS ORDERED: LIDOCAINE 1% INJ 10MG/ML (20 ML MDV) ONE (11:07)
[2018-07-23] MEDS ORDERED: methylPREDNISolone SOD SUCCI 125 MG/2 ML VIAL ONE (11:34)
[2018-07-23] MEDS ORDERED: fentaNYL (PF) 50 MCG/ML 2 ML AMP IV ONE (11:36)
[2018-07-23] MEDS ORDERED: methylPREDNISolone SOD SUCCI 125 MG/2 ML VIAL IVP ONE (11:36)
[2018-07-23] MEDS ORDERED: LIDOCAINE 1% INJ 10MG/ML (20 ML MDV) SQ ONE (11:37)
[2018-07-23] MEDS ORDERED: MIDAZOLAM 2 MG/2 ML VIAL ONE (11:37)
[2018-07-23] MEDS ORDERED: MIDAZOLAM 2 MG/2 ML VIAL IVP ONE (11:40)
[2018-07-23] MEDS ORDERED: VERAPAMIL SYRINGE (5 MG/10 ML) INTRAARTER ONE (11:41)
[2018-07-23] MEDS ORDERED: HEPARIN SODIUM 1,000 UN/ML (10ML VL) IV ONE (11:49)
[2018-07-23] MEDS ORDERED: IOPAMIDOL-370 125ML BTL INJ ONE (11:52)
[2018-07-23] MEDS ORDERED: RX INFO: IV CONTRAST WAS GIVEN 1 EACH MISC MISCELLANE PRN (12:06)
--- NOTE | 2018-07-23 12:38 | LTR ---
July 23, 2018 Re: Jann Heardum Dear Dr. Carranza: I had the opportunity to perform cardiac catheterization on Mr. Sepulveda at [facility] on the 23 of July and a full copy of the procedure note will be forwarded to you. In brief, he was found to have mild disease in the proximal ramus intermedius with no progression compared with 2006 and based on those findings I recommend continue medical therapy with aggressive coronary risk modifications that have been initiated. Thank you again for allowing me the opportunity to participate in his care. Please feel free to call for any questions. Sincerely yours, MD MOSES EchevarriaL / MARIA ELENAN: [phone] /
--- NOTE | 2018-07-23 12:44 | CC ---
CARDIAC CATHETERIZATION REPORT Mr. Sepulveda is a 72-year-old male with a history of hypertension who has been complaining of chest discomfort. He underwent myocardial perfusion imaging that revealed evidence of inducible ischemia. In view of that, recommendation was made regarding cardiac catheterization. The procedure as well as the risks and the complications were discussed with the patient who is in full understanding and agreement. PROCEDURE: Patient was brought to phlebotomist lab assistant in a fasting semi-sedated state after receiving fentanyl and Benadryl and achieving moderate conscious sedated state. Using Xylocaine anesthesia in the Seldinger technique, a 6-Turkmen sheath was introduced in the right radial artery. Selective right and left coronary angiography performed using 5-Turkmen 3.5 bend right and left Mario catheters. Multiple views of the coronary artery including hemiaxial views were obtained. Following that 5-Turkmen tight pigtail catheter was introduced in the left ventricle and a 30-degree GUY view of the left ventricle was obtained. Following that, the catheter and sheath were removed. Hemostasis was obtained with deployment of a TR band. There was no immediate complication. Patient is returned to his room in stable condition. Of note, the patient received 5000 units of intravenous heparin as well as intra-arterial verapamil. FINDINGS: LEFT MAIN: This is a large-sized vessel trifurcating left circumflex, left anterior descending artery and ramus intermedius. Left main coronary artery has no evidence of high-grade stenosis. LEFT ANTERIOR DESCENDING ARTERY: This is a large-sized vessel reaching to the apex with a wraparound apex segment giving rise to a moderately sized diagonal branch. Proximally the left anterior descending artery as well as branches have no evidence of obstructive coronary artery disease. LEFT CIRCUMFLEX: This is a dominant vessel giving rise to a large proximal obtuse marginal branch, distally bifurcating into PDA and posterolateral segment branches. The left circumflex as well as branches have no evidence of obstructive coronary artery disease. RAMUS INTERMEDIUS: This is a moderately-sized vessel that has a 40% to 50% plaque at the ostium. The rest of the vessel has no high-grade stenosis. RIGHT CORONARY ARTERY: This is a nondominant vessel that has no evidence of high-grade stenosis. LEFT VENTRICULOGRAM: Left ventriculogram was performed in 30-degree GUY view and revealed normal left ventricular size and systolic function. Ejection fraction is 60%. There was no significant mitral regurgitation. HEMODYNAMICS: There was no gradient across the aortic valve. The left ventricular end- diastolic pressure was 14 to 16 mmHg. CONCLUSION: 1. Mild disease in the proximal ramus intermedius. 2. Normal left ventricular size and systolic function. RECOMMENDATION: In view of finding anatomy, I recommend continue medical therapy with aggressive coronary risk modifications that have been initiated. Those findings and recommendation were discussed with the patient and his family and they are in full understanding and agreement. Duration of procedure is 21 minutes. MMODL / IJN: [id number] /
[2018-07-23 15:08] VITALS: BP 139/65; PULSE 88; RESP 16
[2018-07-23] MEDS ORDERED: WARFARIN 5 MG TAB PO SCH (18:00)
[2018-07-23] MEDS ORDERED: TAMSULOSIN 0.4 MG CAP.ER.24H PO SCH (20:00)
[2018-07-24] MEDS ORDERED: VERAPAMIL SR 240 MG TABLET.ER PO SCH (09:00)
[2018-07-24] MEDS ORDERED: DIGOXIN 250 MCG TAB PO SCH (09:00)
[2018-07-24] MEDS ORDERED: WARFARIN 5 MG TAB PO SCH (18:00)
== END 2018-07-23 16:50 | disposition home or self-care (01) ==
LOC: CATHCVL 09:20
PROVIDERS: ATTEND Internal Medicine Interventional Cardiology
DX: I25.10 Atherosclerotic heart disease of native coronary artery without angina pectoris (principal); I10 Essential (primary) hypertension; I48.2 Chronic atrial fibrillation; I42.8 Other cardiomyopathies; Z79.01 Long term (current) use of anticoagulants; Z79.899 Other long term (current) drug therapy
CPT/HCPCS: 93458; 85610; C1894; C1769; J2250; J2930; J2001; J0461; J3010; J1644; Q9967

== ENCOUNTER 2020-03-26 15:42 | Emergency (ER) | payer MEDICARE, BC ==
[2020-03-26 15:49] VITALS: BP 149/74; PULSE 108; RESP 20; TEMP 98.1
--- NOTE | 2020-03-26 16:08 | ED ---
Skin/Abscess/FB HPI - General Chief complaint: Skin/Abscess/Foreign Body Stated complaint: bump on head, ear pain Time Seen by Provider: 03/26/20 15:51 Source: patient Mode of arrival: ambulatory Limitations: no limitations - History of Present Illness Initial comments: 34-year-old male presenting for a lesion in the back of his scalp and skull pain. Burning and at times sharp. Patient states he has pain on the back of his scalp and the adjacent neck near the area. Patient states his noted a lesion or bump in his head. She states it was somewhat oozing. He denies any fevers neck stiffness I pain he states is slight ear pain. He denies any lesions on his nose. Patient states that he did have chicken pox as a child. Denies chemotherapy, chronic steroid use or other autoimmune diseases. Patient appears well there is no signs of acute distress. Appears nontoxic. - Related Data Home Medications Medication Instructions Recorded Confirmed Digoxin [Lanoxin] 250 mcg PO DAILY 09/23/14 07/23/18 Verapamil Sr [Isoptin Sr] 240 mg PO DAILY 09/23/14 07/23/18 Warfarin [Coumadin] 5 mg PO SUTUWETHSA 09/23/14 07/23/18 Tamsulosin HCl [Flomax] 0.4 mg PO DAILY@199906/12/17 07/23/18 Warfarin [Coumadin] 2.5 mg PO MOFR 10/02/17 07/23/18 Previous Rx's Medication Instructions Recorded Acyclovir [Zovirax] 800 mg PO 5XD 7 Days #35 tab 03/26/20 Allergies Allergy/AdvReac Type Severity Reaction Status Date / Time Iodinated Contrast Media Allergy Unknown Verified 03/26/20 15:45 [Iodinated Contrast- Oral and IV Dye] Review of Systems ROS Statement: Those systems with pertinent positive or pertinent negative responses have been documented in the HPI. ROS Other: All systems not noted in ROS Statement are negative. Past Medical History Past Medical History: Atrial Fibrillation, Deep Vein Thrombosis (DVT), Prostate Disorder History of Any Multi-Drug Resistant Organisms: None Reported Past Surgical History: Back Surgery, Heart Catheterization, Joint Replacement Additional Past Surgical History / Comment(s): eren knee replacement Past Anesthesia/Blood Transfusion Reactions: No Reported Reaction Past Psychological History: No Psychological Hx Reported Smoking Status: Never smoker Past Alcohol Use History: None Reported Past Drug Use History: None Reported - Past Family History Mother Family Medical History: No Reported History Additional Family Medical History / Comment(s): Mother is with history of coronary artery disease and borderline diabetes. No history of cancers or strokes. Father Additional Family Medical History / Comment(s): Father is with history of coronary artery disease. No stroke or cancer. Brother(s) Additional Family Medical History / Comment(s): Patient had 2 brothers and one is from coronary artery disease and one from Parkinson's disease. Patient has 4 sisters and one has coronary artery disease. Patient has 3 sons with no major medical problems and no daughters. General Exam - General Exam Comments Initial Comments: General: The patient is awake and alert, in no distress, and does not appear acutely ill. Eye: Pupils are equal, round and reactive to light, extra-ocular movements are intact. No nystagmus. There is normal conjunctiva bilaterally. No signs of icterus. Ears, nose, mouth and throat: There are moist mucous membranes and no oral lesions. No lesions in the external auditory canal to pack membrane. No lesions of the nose. No pain to palpation of mastoid. Neck: The neck is supple, there is no tenderness or JVD. Cardiovascular: There is a regular rate and rhythm. No murmur, rub or gallop is appreciated. Respiratory: Lungs are clear to auscultation, respirations are non-labored, breath sounds are equal. No wheezes, stridor, rales, or rhonchi. Musculoskeletal: Normal ROM, no tenderness. Strength 5/5. Sensation intact. Pulses equal bilaterally 2+. Neurological: A&O x 3. CN II-XII intact grossly, There are no obvious motor or sensory deficits. Coordination appears grossly intact. Speech is normal. Skin: Skin is warm and dry and no rashes. There is a vesciular larege 1cm lesions, sourrounding smaller lesions that extend what appears x2 dermatome. Psychiatric: Cooperative, appropriate mood & affect, normal judgment. Limitations: no limitations Course Vital Signs 03/26/20 15:46 Temperature 98.1 F Pulse Rate 108 H Respiratory 20 Rate Blood Pressure 149/74 O2 Sat by Pulse 98 Oximetry Medical Decision Making - Medical Decision Making physical examination are concerning for herpes zoster infection. In the C2 dermatome. Patient has had symptoms onset set within the last 48-72 hours. Patient appears nontoxic well. She denies any history it's concerning for immune compromised patient be discharged with acyclvir 800mg 5x/day x 7 day and close PCP f/u. Patient is agreeable to care plan and discharge he is to return for vision loss/pain, spiritism pain or hearing loss/increasing ear pain. Disposition Clinical Impression: Rash, Herpes zoster Disposition: HOME SELF-CARE Condition: Good Additional Instructions: Please use medication as discussed. Please follow-up with family doctor in the next 2 days. If eye pain return to the ER, neck stiffness. Please return to emergency room if the symptoms increase or worsen or for any other concerns. Prescriptions: Acyclovir [Zovirax] 800 mg PO 5XD 7 Days #35 tab Is patient prescribed a controlled substance at d/c from ED?: No Referrals: Kalyani Carranza MD [Primary Care Provider] - 1-2 days Time of Disposition: 16:08
== END 2020-03-26 16:31 | disposition home or self-care (01) ==
LOC: EC 15:42
DX: B02.9 Zoster without complications (principal); I48.91 Unspecified atrial fibrillation; N42.9 Disorder of prostate, unspecified; Z79.899 Other long term (current) drug therapy; Z79.01 Long term (current) use of anticoagulants; Z91.041 Radiographic dye allergy status; Z96.653 Presence of artificial knee joint, bilateral; Z86.718 Personal history of other venous thrombosis and embolism
CPT/HCPCS: 99282

== ENCOUNTER 2020-11-03 17:15 | Emergency (ER) | payer MEDICARE, BC ==
[2020-11-03] MEDS ORDERED: ACETAMINOPHEN TAB 500 MG TAB PO STA (18:01)
[2020-11-03] MEDS ORDERED: IBUPROFEN 600 MG TAB PO STA (18:01)
[2020-11-03 18:18] LABS: Basophils # (A) 0.1 k/uL (0-0.2); Basophils % (A) 1 %; Eosinophils # (A) 0.1 k/uL (0-0.7); Eosinophils % (A) 1 %; HCT 41.1 % (39.0-53.0); Lymphocytes # (A) 1.1 k/uL (1.0-4.8); Lymphocytes % (A) 12 %; MCH 28.9 pg (25.0-35.0); MCHC 34.1 g/dL (31.0-37.0); MCV 84.8 fL (80.0-100.0); Mean Platelet Volume 7.6; Monocytes # (A) 0.6 k/uL (0-1.0); Monocytes % (A) 7 %; Neutrophils # (A) 6.8 k/uL (1.3-7.7); Neutrophils % (A) 79 %; Platelet Count 240 k/uL (150-450); RBC 4.85 m/uL (4.30-5.90); RDW 14.3 % (11.5-15.5); WBC 8.6 k/uL (3.8-10.6)
[2020-11-03 18:30] LABS: ALT 15 U/L (4-49); AST 27 U/L (17-59); African American GFR (CKD) >90 (>60 ml/min/1.73 sqM); Albumin 3.9 g/dL (3.5-5.0); Alkaline Phosphatase 71 U/L (38-126); Anion Gap 8 mmol/L; Blood Urea Nitrogen 25 mg/dL (9-20); Calcium 8.9 mg/dL (8.4-10.2); Carbon Dioxide 26 mmol/L (22-30); Chloride 97 mmol/L (98-107); Glucose 114 mg/dL (74-99); LDH 519 U/L (313-618); Magnesium 2.3 mg/dL (1.6-2.3); Non-African American GFR(CKD) 85 (>60 ml/min/1.73 sqM); Potassium 4.6 mmol/L (3.5-5.1); Sodium 131 mmol/L (137-145); Total Bilirubin 1.2 mg/dL (0.2-1.3); Total Protein 7.1 g/dL (6.3-8.2)
[2020-11-03 18:35] LABS: INR 1.5 (<1.2); Partial Thromboplastin Time 29.3 sec (22.0-30.0); Prothrombin Time 15.1 sec (9.0-12.0)
[2020-11-03 18:53] LABS: C Reactive Protein 146.1 mg/L (<10.0)
--- NOTE | 2020-11-03 18:53 | XR ---
EXAMINATION TYPE: XR chest 1V portable DATE OF EXAM: 11/03/2020 COMPARISON: 06/12/2018 HISTORY: Short of breath TECHNIQUE: Single view FINDINGS: There is some 4 cm patch of infiltrate in the right midlung field. There is no heart failur e. Costophrenic angles are clear. There is probably some subsegmental atelectasis left lower lobe. Cole ny thorax is intact. IMPRESSION: There is some infiltrate and atelectasis as above that appears new compared to old exam. No heart failure seen.
--- NOTE | 2020-11-03 19:08 | ED ---
General Adult HPI - General Source: patient, RN notes reviewed Mode of arrival: ambulatory Limitations: no limitations <Deangelo Parkinson - Last Filed: 11/03/20 21:18> <Melita Mederos - Last Filed: 11/05/20 12:27> - General Chief complaint: Upper Respiratory Infection Stated complaint: fever/chills/nausea Time Seen by Provider: 11/03/20 17:46 - History of Present Illness Initial comments: 75-year-old male with a past medical history of atrial fibrillation, DVT presents to the emergency room for a chief complaint of not feeling well. Patient reports that for about the past week he has had congestion. The past several days he has had nausea and chills on and off. He called his doctor who recommended he try Zyrtec. He states that did help his congestion however his nausea worsened and so he presented to the emergency room. Patient denies any shortness of breath or chest pain.Patient has no other complaints at this time including SOB chest pain, abdominal pain, vomiting, headache, or visual changes. (Deangelo Parkinson) - Related Data Home Medications Medication Instructions Recorded Confirmed Digoxin [Lanoxin] 250 mcg PO DAILY 09/23/14 07/23/18 Verapamil Sr [Isoptin Sr] 240 mg PO DAILY 09/23/14 07/23/18 Warfarin [Coumadin] 5 mg PO SUTUWETHSA 09/23/14 07/23/18 Tamsulosin HCl [Flomax] 0.4 mg PO DAILY@199906/12/17 07/23/18 Warfarin [Coumadin] 2.5 mg PO MOFR 10/02/17 07/23/18 Previous Rx's Medication Instructions Recorded Acyclovir [Zovirax] 800 mg PO 5XD 7 Days #35 tab 03/26/20 Allergies Allergy/AdvReac Type Severity Reaction Status Date / Time Iodinated Contrast Media Allergy Unknown Verified 11/03/20 17:25 [Iodinated Contrast- Oral and IV Dye] Review of Systems ROS Other: All systems not noted in ROS Statement are negative. <Deangelo Parkinson - Last Filed: 11/03/20 21:18> ROS Other: All systems not noted in ROS Statement are negative. <Melita Mederos - Last Filed: 11/05/20 12:27> ROS Statement: Those systems with pertinent positive or pertinent negative responses have been documented in the HPI. Past Medical History Past Medical History: Atrial Fibrillation, Deep Vein Thrombosis (DVT), Prostate Disorder History of Any Multi-Drug Resistant Organisms: None Reported Past Surgical History: Back Surgery, Heart Catheterization, Joint Replacement Additional Past Surgical History / Comment(s): eren knee replacement Past Anesthesia/Blood Transfusion Reactions: No Reported Reaction Past Psychological History: No Psychological Hx Reported Smoking Status: Never smoker Past Alcohol Use History: None Reported Past Drug Use History: None Reported - Past Family History Mother Family Medical History: No Reported History Additional Family Medical History / Comment(s): Mother is with history of coronary artery disease and borderline diabetes. No history of cancers or strokes. Father Additional Family Medical History / Comment(s): Father is with history of coronary artery disease. No stroke or cancer. Brother(s) Additional Family Medical History / Comment(s): Patient had 2 brothers and one is from coronary artery disease and one from Parkinson's disease. Patient has 4 sisters and one has coronary artery disease. Patient has 3 sons with no major medical problems and no daughters. <Deangelo Parkinson P - Last Filed: 11/03/20 21:18> General Exam Limitations: no limitations General appearance: alert, in no apparent distress Head exam: Present: atraumatic, normocephalic, normal inspection Eye exam: Present: normal appearance, PERRL, EOMI. Absent: scleral icterus, conjunctival injection, periorbital swelling ENT exam: Present: normal exam, mucous membranes moist Neck exam: Present: normal inspection, full ROM. Absent: tenderness, meningismus, lymphadenopathy Respiratory exam: Present: normal lung sounds bilaterally. Absent: respiratory distress, wheezes, rales, rhonchi, stridor Cardiovascular Exam: Present: regular rate, normal rhythm, normal heart sounds. Absent: systolic murmur, diastolic murmur, rubs, gallop, clicks GI/Abdominal exam: Present: soft, normal bowel sounds. Absent: distended, tenderness, guarding, rebound, rigid Neurological exam: Present: alert <Deangelo Parkinson P - Last Filed: 11/03/20 21:18> Course Vital Signs 11/03/20 11/03/20 11/03/20 17:23 19:27 20:55 Temperature 101.9 F H 98.8 F 97.9 F Pulse Rate 100 84 76 Respiratory 18 18 18 Rate Blood Pressure 141/72 116/74 136/73 O2 Sat by Pulse 96 95 94 L Oximetry 11/03/20 11/03/20 11/03/20 21:47 22:03 22:32 Temperature 97.9 F 97.9 F 97.8 F Pulse Rate 89 85 95 Respiratory 18 18 18 Rate Blood Pressure 125/78 136/72 O2 Sat by Pulse 96 95 96 Oximetry 11/03/20 11/03/20 22:55 23:24 Temperature 97.9 F 97.7 F Pulse Rate 98 98 Respiratory 18 18 Rate Blood Pressure 118/58 137/84 O2 Sat by Pulse 96 96 Oximetry EKG Findings - EKG Comments: EKG Findings:: Atrial fibrillation, ventricular rate 90, QRS duration 80, QTc 396 <Deangelo Parkinson - Last Filed: 11/03/20 21:18> Medical Decision Making - Lab Data Result diagrams: 11/03/20 18:01 11/03/20 18:01 <Deangelo Parkinson - Last Filed: 11/03/20 21:18> - Lab Data Result diagrams: 11/03/20 18:01 11/03/20 18:01 <Melita Mederos - Last Filed: 11/05/20 12:27> - Medical Decision Making Vitals are stable. Patient is 96% on room air. He is well-appearing. Physical exam is unremarkable. Patient is sitting up in bed well-appearing, North or di stress. CBC is unremarkable. CMP shows slight dehydration, patient orally rehydrating. Patient is Covid positive. This is likely the cause of his elevated CRP. Chest x-ray does show a slight pneumonia. Patient is anticoagulated on Coumadin. At this time patient is stable for discharge home. I did discuss antibodies which he does prefer to have. I did review the risks with him. I discussed return parameters as well. (Deangelo Parkinson) I was available for consultation in the emergency department. The history and physical exam were done by the midlevel provider. I was consulted for this patients care. I reviewed the case with the midlevel provider and based on their presentation of the patient, I agree with the assessment, medical decision making and plan of care as documented. Patient received BAM antibody infusion prior to discharge. Chart was dictated using [employer] dictation software. Attempts were made to correct any dictation errors however some typographical errors may persist. Patient was seen during a national state of emergency due to the Covid-19 pandemic. (Melita Mederos) - Lab Data Lab Results 11/03/20 11/03/20 11/03/20 Range/Units 18:01 18:01 18:01 WBC 8.6 (3.8-10.6) k/uL RBC 4.85 (4.30-5.90) m/uL Hgb 14.0 (13.0-17.5) gm/dL Hct 41.1 (39.0-53.0) % MCV 84.8 (80.0-100.0) fL MCH 28.9 (25.0-35.0) pg MCHC 34.1 (31.0-37.0) g/dL RDW 14.3 (11.5-15.5) % Plt Count 240 (150-450) k/uL MPV 7.6 Neutrophils % 79 % Lymphocytes % 12 % Monocytes % 7 % Eosinophils % 1 % Basophils % 1 % Neutrophils # 6.8 (1.3-7.7) k/uL Lymphocytes # 1.1 (1.0-4.8) k/uL Monocytes # 0.6 (0-1.0) k/uL Eosinophils # 0.1 (0-0.7) k/uL Basophils # 0.1 (0-0.2) k/uL PT 15.1 H (9.0-12.0) sec INR 1.5 H (<1.2) APTT 29.3 (22.0-30.0) sec Sodium 131 L (137-145) mmol/L Potassium 4.6 (3.5-5.1) mmol/L Chloride 97 L (98-107) mmol/L Carbon Dioxide 26 (22-30) mmol/L Anion Gap 8 mmol/L BUN 25 H (9-20) mg/dL Creatinine 0.84 (0.66-1.25) mg/dL Est GFR (CKD-EPI)AfAm >90 (>60 ml/min/1.73 sqM) Est GFR (CKD-EPI)NonAf 85 (>60 ml/min/1.73 sqM) Glucose 114 H (74-99) mg/dL Plasma Lactic Acid Billy (0.7-2.0) mmol/L Calcium 8.9 (8.4-10.2) mg/dL Magnesium 2.3 (1.6-2.3) mg/dL Ferritin 317.9 (22.0-322.0) ng/mL Total Bilirubin 1.2 (0.2-1.3) mg/dL AST 27 (17-59) U/L ALT 15 (4-49) U/L Alkaline Phosphatase 71 (38-126) U/L Lactate Dehydrogenase 519 (313-618) U/L C-Reactive Protein 146.1 H (<10.0) mg/L Total Protein 7.1 (6.3-8.2) g/dL Albumin 3.9 (3.5-5.0) g/dL Procalcitonin (0.02-0.09) ng/mL Coronavirus (PCR) (Not Detectd) 11/03/20 11/03/20 11/03/20 Range/Units 18:01 18:01 19:25 WBC (3.8-10.6) k/uL RBC (4.30-5.90) m/uL Hgb (13.0-17.5) gm/dL Hct (39.0-53.0) % MCV (80.0-100.0) fL MCH (25.0-35.0) pg MCHC (31.0-37.0) g/dL RDW (11.5-15.5) % Plt Count (150-450) k/uL MPV Neutrophils % % Lymphocytes % % Monocytes % % Eosinophils % % Basophils % % Neutrophils # (1.3-7.7) k/uL Lymphocytes # (1.0-4.8) k/uL Monocytes # (0-1.0) k/uL Eosinophils # (0-0.7) k/uL Basophils # (0-0.2) k/uL PT (9.0-12.0) sec INR (<1.2) APTT (22.0-30.0) sec Sodium (137-145) mmol/L Potassium (3.5-5.1) mmol/L Chloride (98-107) mmol/L Carbon Dioxide (22-30) mmol/L Anion Gap mmol/L BUN (9-20) mg/dL Creatinine (0.66-1.25) mg/dL Est GFR (CKD-EPI)AfAm (>60 ml/min/1.73 sqM) Est GFR (CKD-EPI)NonAf (>60 ml/min/1.73 sqM) Glucose (74-99) mg/dL Plasma Lactic Acid Billy 1.2 (0.7-2.0) mmol/L Calcium (8.4-10.2) mg/dL Magnesium (1.6-2.3) mg/dL Ferritin (22.0-322.0) ng/mL Total Bilirubin (0.2-1.3) mg/dL AST (17-59) U/L ALT (4-49) U/L Alkaline Phosphatase (38-126) U/L Lactate Dehydrogenase (313-618) U/L C-Reactive Protein (<10.0) mg/L Total Protein (6.3-8.2) g/dL Albumin (3.5-5.0) g/dL Procalcitonin 0.10 H (0.02-0.09) ng/mL Coronavirus (PCR) Detected A (Not Detectd) Disposition Is patient prescribed a controlled substance at d/c from ED?: No Time of Disposition: 21:18 <Deangelo Parkinson P - Last Filed: 11/03/20 21:18> <Melita Mederos A - Last Filed: 11/05/20 12:27> Clinical Impression: COVID-19, Elevated C-reactive protein (CRP) Disposition: HOME SELF-CARE Condition: Good Instructions (If sedation given, give patient instructions): Coronavirus Disease 2019 (COVID-19) Additional Instructions: Please follow up with primary care in 1-2 days. Return to the ER for any worsening symptoms such as shortness of breath. Referrals: Kalyani Carranza MD [Primary Care Provider] - 1-2 days
[2020-11-03] MEDS ORDERED: BAMLANIVIMAB 700 MG in SODIUM CHLORIDE 0.9% 50 ML IVPB ONE (21:30)
[2020-11-03 23:04] VITALS: PULSE 98; RESP 18
[2020-11-03 23:35] VITALS: BP 137/84; TEMP 97.7
[2020-11-04 05:32] LABS: Ferritin 317.9 ng/mL (22.0-322.0)
== END 2020-11-03 23:25 | disposition home or self-care (01) ==
LOC: EC 17:15
DX: U07.1 COVID-19 (principal); R79.82 Elevated C-reactive protein (CRP); I48.91 Unspecified atrial fibrillation; Z86.718 Personal history of other venous thrombosis and embolism
CPT/HCPCS: 36415; 93005; 80053; 82728; 83605; 83615; 83735; 85025; 85610; 85730; 86140; 84145; 87635; 71045; 99284; 96374; Q0239

== ENCOUNTER 2022-11-20 12:14 | Emergency (ER) | payer MEDICARE, BC ==
[2022-11-20 12:22] VITALS: TEMP 97.5
[2022-11-20] MEDS ORDERED: SODIUM CHLORIDE 0.9% 500 ML 500 ML IV STA (12:50)
[2022-11-20] MEDS ORDERED: HYDROmorphone 0.5 MG/0.5 ML SYRINGE IVP STA (12:51)
--- NOTE | 2022-11-20 13:03 | ED ---
General Adult HPI - General Chief complaint: Abdominal Pain Stated complaint: kidney pain Time Seen by Provider: 11/20/22 12:22 Source: patient, EMS, RN notes reviewed, old records reviewed Mode of arrival: EMS Limitations: no limitations - History of Present Illness Initial comments: 77-year-old male presenting for evaluation of right-sided flank pain radiating to the lower abdomen. Pain was sudden in onset. He was accompanied by a near syncopal event which the patient states was related to the pain. He states he did not fully pass out. No injury. No vomiting. No fever. He states he was diaphoretic during the episode. States that the pain is significantly better at this time. He does have a history of any stones. - Related Data Home Medications Medication Instructions Recorded Confirmed Digoxin [Lanoxin] 250 mcg PO DAILY 09/23/14 11/20/22 Warfarin [Coumadin] 5 mg PO SUTUWETHSA 09/23/14 11/20/22 Tamsulosin HCl [Flomax] 0.4 mg PO DAILY 06/12/17 11/20/22 Warfarin [Coumadin] 2.5 mg PO MOFR 10/02/17 11/20/22 Atorvastatin [Lipitor] 40 mg PO DAILY 11/20/22 11/20/22 Empagliflozin [Jardiance] 10 mg PO DAILY 11/20/22 11/20/22 Verapamil HCl [Verapamil ER] 240 mg PO DAILY 11/20/22 11/20/22 Allergies Allergy/AdvReac Type Severity Reaction Status Date / Time Iodinated Contrast Media Allergy Unknown Verified 11/20/22 13:13 [Iodinated Contrast- Oral and IV Dye] Review of Systems ROS Statement: Those systems with pertinent positive or pertinent negative responses have been documented in the HPI. ROS Other: All systems not noted in ROS Statement are negative. Past Medical History Past Medical History: Atrial Fibrillation, Deep Vein Thrombosis (DVT), Prostate Disorder History of Any Multi-Drug Resistant Organisms: None Reported Past Surgical History: Back Surgery, Heart Catheterization, Joint Replacement Additional Past Surgical History / Comment(s): eren knee replacement Past Anesthesia/Blood Transfusion Reactions: No Reported Reaction Past Psychological History: No Psychological Hx Reported Smoking Status: Never smoker Past Alcohol Use History: None Reported Past Drug Use History: None Reported - Past Family History Mother Family Medical History: No Reported History Additional Family Medical History / Comment(s): Mother is with history of coronary artery disease and borderline diabetes. No history of cancers or strokes. Father Additional Family Medical History / Comment(s): Father is with history of coronary artery disease. No stroke or cancer. Brother(s) Additional Family Medical History / Comment(s): Patient had 2 brothers and one is from coronary artery disease and one from Parkinson's disease. Patient has 4 sisters and one has coronary artery disease. Patient has 3 sons with no major medical problems and no daughters. General Exam Limitations: no limitations General appearance: alert, in no apparent distress Head exam: Present: atraumatic, normocephalic Eye exam: Present: normal appearance, PERRL Neck exam: Present: normal inspection. Absent: tenderness, meningismus Respiratory exam: Present: normal lung sounds bilaterally. Absent: respiratory distress, wheezes Cardiovascular Exam: Present: regular rate, normal rhythm GI/Abdominal exam: Present: soft. Absent: distended, tenderness, guarding Extremities exam: Present: normal inspection, normal capillary refill. Absent: pedal edema Back exam: Absent: CVA tenderness (R), CVA tenderness (L) Neurological exam: Present: alert, oriented X3, CN II-XII intact. Absent: motor sensory deficit Psychiatric exam: Present: normal affect, normal mood Skin exam: Present: warm, dry Course Vital Signs 11/20/22 11/20/22 11/20/22 12:17 12:30 13:30 Temperature 97.5 F L Pulse Rate 67 61 69 Respiratory 18 17 15 Rate Blood Pressure 141/88 141/88 136/71 O2 Sat by Pulse 96 96 97 Oximetry 11/20/22 14:00 Temperature Pulse Rate 59 L Respiratory 16 Rate Blood Pressure 114/73 O2 Sat by Pulse 94 L Oximetry EKG Findings - EKG Comments: EKG Findings:: EKG: A fibrillation, rate controlled, ventricular rate 63, QRS duration 86, QTC 393, no ST segment changes Medical Decision Making - Medical Decision Making 77-year-old male presenting with right flank pain radiating to the right lower abdomen. This was sudden in onset. Was pt. sent in by a medical professional or institution (, PA, SCENE PAINTER, urgent care, hospital, or residential...) When possible be specific @ -No Did you speak to anyone other than the patient for history (EMS, parent, family, police, friend...)? What history was obtained from this source @ -Transported by paramedics Did you review nursing and triage notes (agree or disagree)? Why? @ -I reviewed and agree with nursing and triage notes Were old charts reviewed (outside hosp., previous admission, EMS record, old EKG, old radiological studies, urgent care reports/EKG's, residential records)? Report findings @ -No old charts were reviewed Differential Diagnosis (chest pain, altered mental status, abdominal pain women, abdominal pain men, vaginal bleeding, weakness, fever, dyspnea, syncope, headache, dizziness, GI bleed, back pain, seizure, CVA, palpatations, mental health, musculoskeletal)? @ -Differential Abdominal Pain Men: Appendicitis, cholecystitis, diverticulosis, ischemic bowel, pancreatitis, hepatitis, UTI, gastroenteritis, AAA, incarcerated hernia, bowel obstruction, constipation, inflammatory bowel, hepatitis, peptic ulcer disease, splenic infarction, perforated viscus, testicular torsion, this is not meant to be an all-inclusive list EKG interpreted by me (3pts min.). @ -As above X-rays interpreted by me (1pt min.). @ -None done CT interpreted by me (1pt min.). @ -CT performed of the abdomen and pelvis which shows dependent gallstones and nonobstructing kidney stones. No hydronephrosis. Patient does have a large prostate with calcifications. U/S interpreted by me (1pt. min.). @ -None done What testing was considered but not performed or refused? (CT, X-rays, U/S, labs)? Why? @ -None What meds were considered but not given or refused? Why? @ -None Did you discuss the management of the patient with other professionals (karuna mena i.e. , PA, SCENE PAINTER, lab, RT, psych nurse, vp digital marketing social media and crm, oil boiler, teacher, classification officer, manager case)? Give summary @ -Case discussed with the patient's primary care physician Dr. Carranza Was smoking cessation discussed for >3mins.? @ -No Was critical care preformed (if so, how long)? @ -No Were there social determinants of health that impacted care today? How? (Homelessness, low income, unemployed, alcoholism, drug addiction, transportation, low edu. Level, literacy, decrease access to med. care, [facility] [facility], rehab)? @ -No Was there de-escalation of care discussed even if they declined (Discuss DNR or withdrawal of care, Hospice)? DNR status @ -No What co-morbidities impacted this encounter? (DM, HTN, Smoking, COPD, CAD, Cancer, CVA, ARF, Chemo, Hep., AIDS, mental health diagnosis, sleep apnea, morb id obesity)? @ -BPH, kidney stones Was patient admitted / discharged? Hospital course, mention meds given and route, prescriptions, significant lab abnormalities, going to OR and other pertinent info. @ -77-year-old male with sudden onset right flank pain. History was suggestive of kidney stone. Patient does have a small amount of hematuria with 9 red cells in the urine. He does not have any hydronephrosis or obstructing stone on CT bu t I did consider the possibility of a recently passed stone. Pain is improved in the emergency department. Vital signs are stable. He is in rate controlled A. fib. He has a normal CBC without leukocytosis or anemia. Normal kidney function. Patient's given IV fluids, and pain medication in the emergency department. I discussed case with his primary care physician. He has an appointment with urology which his primary care office is arranging. I instructed the patient to maintain this appointment and contact the urologist to determine when this appointment is. Return parameters discussed. Patient stable for discharge. Undiagnosed new problem with uncertain prognosis? @ -No Drug Therapy requiring intensive monitoring for toxicity (Heparin, Nitro, Insulin, Cardizem)? @ -No Were any procedures done? @ -No Diagnosis/symptom? @ -Flank pain Acute, or Chronic, or Acute on Chronic? @ -Acute Uncomplicated (without systemic symptoms) or Complicated (systemic symptoms)? @ -Complicated - Lab Data Result diagrams: 11/20/22 12:52 11/20/22 12:52 Lab Results 11/20/22 11/20/22 11/20/22 Range/Units 12:52 12:52 12:52 WBC 6.4 (3.8-10.6) k/uL RBC 5.14 (4.30-5.90) m/uL Hgb 14.6 (13.0-17.5) gm/dL Hct 44.2 (39.0-53.0) % MCV 86.0 (80.0-100.0) fL MCH 28.5 (25.0-35.0) pg MCHC 33.1 (31.0-37.0) g/dL RDW 14.8 (11.5-15.5) % Plt Count 240 (150-450) k/uL MPV 8.5 Neutrophils % 66 % Lymphocytes % 25 % Monocytes % 6 % Eosinophils % 1 % Basophils % 1 % Neutrophils # 4.2 (1.3-7.7) k/uL Lymphocytes # 1.6 (1.0-4.8) k/uL Monocytes # 0.4 (0-1.0) k/uL Eosinophils # 0.1 (0-0.7) k/uL Basophils # 0.0 (0-0.2) k/uL PT 15.8 H (9.0-12.0) sec INR 1.6 H (<1.2) APTT 24.2 (22.0-30.0) sec Sodium (137-145) mmol/L Potassium (3.5-5.1) mmol/L Chloride (98-107) mmol/L Carbon Dioxide (22-30) mmol/L Anion Gap mmol/L BUN (9-20) mg/dL Creatinine (0.66-1.25) mg/dL Est GFR (CKD-EPI)AfAm (>60 ml/min/1.73 sqM) Est GFR (CKD-EPI)NonAf (>60 ml/min/1.73 sqM) Glucose (74-99) mg/dL Plasma Lactic Acid Billy (0.7-2.0) mmol/L Calcium (8.4-10.2) mg/dL Total Bilirubin (0.2-1.3) mg/dL AST (17-59) U/L ALT (4-49) U/L Alkaline Phosphatase (38-126) U/L Total Protein (6.3-8.2) g/dL Albumin (3.5-5.0) g/dL Urine Color Yellow Urine Appearance Clear (Clear) Urine pH 5.5 (5.0-8.0) Ur Specific [place] 1.022 (1.001-1.035) Urine Protein 1+ H (Negative) Urine Glucose (UA) 4+ H (Negative) Urine Ketones Negative (Negative) Urine Blood Small H (Negative) Urine Nitrite Negative (Negative) Urine Bilirubin Negative (Negative) Urine Urobilinogen <2.0 (<2.0) mg/dL Ur Leukocyte Esterase Negative (Negative) Urine RBC 9 H (0-5) /hpf Urine WBC 5 (0-5) /hpf Hyaline Casts 3 H (0-2) /lpf Urine Mucus Few H (None) /hpf 11/20/22 11/20/22 Range/Units 12:52 12:52 WBC (3.8-10.6) k/uL RBC (4.30-5.90) m/uL Hgb (13.0-17.5) gm/dL Hct (39.0-53.0) % MCV (80.0-100.0) fL MCH (25.0-35.0) pg MCHC (31.0-37.0) g/dL RDW (11.5-15.5) % Plt Count (150-450) k/uL MPV Neutrophils % % Lymphocytes % % Monocytes % % Eosinophils % % Basophils % % Neutrophils # (1.3-7.7) k/uL Lymphocytes # (1.0-4.8) k/uL Monocytes # (0-1.0) k/uL Eosinophils # (0-0.7) k/uL Basophils # (0-0.2) k/uL PT (9.0-12.0) sec INR (<1.2) APTT (22.0-30.0) sec Sodium 140 (137-145) mmol/L Potassium 4.0 (3.5-5.1) mmol/L Chloride 104 (98-107) mmol/L Carbon Dioxide 26 (22-30) mmol/L Anion Gap 10 mmol/L BUN 16 (9-20) mg/dL Creatinine 0.70 (0.66-1.25) mg/dL Est GFR (CKD-EPI)AfAm >90 (>60 ml/min/1.73 sqM) Est GFR (CKD-EPI)NonAf >90 (>60 ml/min/1.73 sqM) Glucose 120 H (74-99) mg/dL Plasma Lactic Acid Billy 2.6 H* (0.7-2.0) mmol/L Calcium 9.2 (8.4-10.2) mg/dL Total Bilirubin 1.0 (0.2-1.3) mg/dL AST 27 (17-59) U/L ALT 24 (4-49) U/L Alkaline Phosphatase 81 (38-126) U/L Total Protein 6.9 (6.3-8.2) g/dL Albumin 4.1 (3.5-5.0) g/dL Urine Color Urine Appearance (Clear) Urine pH (5.0-8.0) Ur Specific [place] (1.001-1.035) Urine Protein (Negative) Urine Glucose (UA) (Negative) Urine Ketones (Negative) Urine Blood (Negative) Urine Nitrite (Negative) Urine Bilirubin (Negative) Urine Urobilinogen (<2.0) mg/dL Ur Leukocyte Esterase (Negative) Urine RBC (0-5) /hpf Urine WBC (0-5) /hpf Hyaline Casts (0-2) /lpf Urine Mucus (None) /hpf Disposition Clinical Impression: Abdominal pain, Flank pain Disposition: HOME SELF-CARE Condition: Fair Instructions (If sedation given, give patient instructions): Abdominal Pain (ED) Is patient prescribed a controlled substance at d/c from ED?: No Referrals: Kalyani Carranza MD [Primary Care Provider] - 1-2 days Miguel Olivas MD [STAFF PHYSICIAN] - 1-2 days Time of Disposition: 14:39
[2022-11-20 13:04] LABS: Basophils % (A) 1 %; Eosinophils # (A) 0.1 k/uL (0-0.7); Eosinophils % (A) 1 %; HCT 44.2 % (39.0-53.0); HGB 14.6 gm/dL (13.0-17.5); Lymphocytes # (A) 1.6 k/uL (1.0-4.8); Lymphocytes % (A) 25 %; MCH 28.5 pg (25.0-35.0); MCHC 33.1 g/dL (31.0-37.0); Mean Platelet Volume 8.5; Monocytes # (A) 0.4 k/uL (0-1.0); Monocytes % (A) 6 %; Neutrophils # (A) 4.2 k/uL (1.3-7.7); Neutrophils % (A) 66 %; Platelet Count 240 k/uL (150-450); RBC 5.14 m/uL (4.30-5.90); RDW 14.8 % (11.5-15.5); WBC 6.4 k/uL (3.8-10.6)
[2022-11-20 13:19] LABS: INR 1.6 (<1.2); Partial Thromboplastin Time 24.2 sec (22.0-30.0); Prothrombin Time 15.8 sec (9.0-12.0)
[2022-11-20 13:22] LABS: ALT 24 U/L (4-49); AST 27 U/L (17-59); African American GFR (CKD) >90 (>60 ml/min/1.73 sqM); Albumin 4.1 g/dL (3.5-5.0); Alkaline Phosphatase 81 U/L (38-126); Anion Gap 10 mmol/L; Blood Urea Nitrogen 16 mg/dL (9-20); Calcium 9.2 mg/dL (8.4-10.2); Carbon Dioxide 26 mmol/L (22-30); Chloride 104 mmol/L (98-107); Glucose 120 mg/dL (74-99); Non-African American GFR(CKD) >90 (>60 ml/min/1.73 sqM); Sodium 140 mmol/L (137-145); Total Protein 6.9 g/dL (6.3-8.2)
--- NOTE | 2022-11-20 13:24 | CT ---
EXAMINATION TYPE: CT abdomen pelvis wo con DATE OF EXAM: 11/20/2022 COMPARISON: 09/30/2022 INDICATION: Right sided flank pain DLP: 735.9 mGycm, Automated exposure control for dose reduction was used. CONTRAST: 0 mL of Isovue 300. Study performed without Oral Contrast TECHNIQUE: Axial images were obtained from above the diaphragm to the pubic rami in the axial plane a t 5 mm thick sections. Reconstructed images are reviewed on the computer in the coronal plane. FINDINGS: Limited CT sections are obtained the lung bases. Small hiatal hernia is present.. CT ABDOMEN: Liver: Normal Spleen: Normal Pancreas: Normal Adrenal glands: The adrenal glands are normal. Gallbladder: Couple of small gallstones within the dependent gallbladder. Kidneys: No masses are evident. No hydronephrosis is present. No cysts are present. Scattered punc dominguez calcifications are within the bilateral kidneys, more so on the right than left. No hydronephros is is evident. Aorta: Vascular calcification is within the aorta. Inferior vena cava: Normal. CT PELVIS: Loops of bowel within the abdomen and pelvis are normal. There are loops of bowel which are incom pletely distended or lack oral contrast limiting their evaluation. Appendix: Normal as visualized. Urinary bladder: Urinary bladder diverticulum is present anteriorly. Inferior impression on the urina ry bladder from the prostate is evident. Growth into the urinary bladder cannot be excluded. Genitourinary structures: Prostate is prominent and has some inferior impression on urinary bladder. Multiple calcifications are within the prostate. Osseous structures: No suspicious lytic or sclerotic lesions. IMPRESSIONS: 1. Prostate hypertrophy with inferior impression and urinary bladder. Consider additional evaluation . 2. Urinary bladder diverticulum anterior. 3. Small gallstones. 4. Multiple bilateral nonobstructing punctate renal stones
[2022-11-20 14:06] LABS: Appearance,Urine Clear (Clear); Bilirubin,Urine Negative (Negative); Blood,Urine Small (Negative); Color,Urine Yellow; Glucose,Urine (UA) 4+ (Negative); Hyaline Casts,Urine 3 /lpf (0-2); Ketones,Urine Negative (Negative); Leukocyte Esterase,Urine Negative (Negative); Mucus,Urine Few /hpf; Nitrite,Urine Negative (Negative); PH, Urine 5.5 (5.0-8.0); Protein,Urine 1+ (Negative); RBC,Urine 9 /hpf (0-5); Specific Gravity,Urine 1.022 (1.001-1.035); Urobilinogen,Urine <2.0 mg/dL (<2.0); WBC,Urine 5 /hpf (0-5)
[2022-11-20] MEDS ORDERED: KETOROLAC 15 MG/ML 1 ML VIAL IVP STA (14:31)
[2022-11-20 15:08] VITALS: BP 114/70; PULSE 61; RESP 18
== END 2022-11-20 15:11 | disposition home or self-care (01) ==
LOC: EC 12:14
DX: K80.20 Calculus of gallbladder without cholecystitis without obstruction (principal); N20.0 Calculus of kidney; N32.3 Diverticulum of bladder; I48.91 Unspecified atrial fibrillation; Z79.01 Long term (current) use of anticoagulants; Z91.041 Radiographic dye allergy status
CPT/HCPCS: 99285; 96374; 96375; 96361; 36415; 80053; 83605; 85025; 85610; 85730; 81001; 74176; J1885; J1170; 93005

== ENCOUNTER → 2024-06-25 | Day surgery (SDC) | payer MEDICARE, BC ==
[2024-06-23 09:20] VITALS: BMI 31.0
[~2024-06-25] MED LIST changes: -ALPRAZolam 0.25 MG TAB PO PRN; -ASPIRIN 325 MG TAB PO ONE; -NITROGLYCERIN SL TABS 0.4 MG TAB SUBLINGUAL PRN; +PROPOFOL 10 MG/ML 20 ML VIAL IV ONE; -SODIUM CHLORIDE 0.9% 1,000 ML in EMPTY BAG 1 BAG IV ONE
[2024-06-25] MEDS: IV FLUID CONTINUATION 1,000 ML IV ONE (11:21)
[2024-06-25 11:31] VITALS: TEMP 97
[2024-06-25] MEDS: LACTATED RINGERS 1,000 ML IV SCH (11:44)
[2024-06-25 11:47] LABS: Glucose,Whole Blood 100 mg/dL (70-110)
--- NOTE | 2024-06-25 12:47 | P.PCN ---
Date of Procedure: 06/25/24 Procedure(s) Performed: BRIEF HISTORY: Patient is a 78-year-old pleasant white man scheduled for an elective colonoscopy as a part of Hemoccult positive stool PROCEDURE PERFORMED: Colonoscopy snare polypectomy, biopsy, tattooing with Elana ink. PREOPERATIVE DIAGNOSIS: Hemoccult positive stool. IV sedation per Anesthesia. PROCEDURE: After informed consent was obtained, the patient, was brought into the endoscopy unit. IV sedation was administered by Anesthesia under continuous monitoring. Digital rectal examination was normal. Initially the Olympus CF-160 flexible video colonoscope was then inserted in the rectum, gradually advanced into the cecum without any difficulty. Careful examination was performed as the scope was gradually being withdrawn. Ileocecal valve and the appendiceal orifice were visualized and appeared normal. Prep was excellent. Mucosa of the cecum normal. Ascending colon there was a 4 polyps measuring between 7 to 10 mm in size removed by snare polypectomy. In the mid transverse colon at 70 cm from the anal verge there was a a 2.5 cm ulcerated polypoid lesion that was biopsied followed by tattooing with Elana ink. Rest of the transverse colon, descending colon, sigmoid colon, and rectum appeared normal. Rectum there was a 1 cm polyp removed by snare polypectomy. Retroflexion was performed in the rectum and no lesions were seen. The patient tolerated the procedure well. IMPRESSION: 2.5 cm ulcerated polypoid lesion in the mid transverse colon at 70 cm from the anal verge s/p multiple biopsies followed by tattooing with Elana ink For polyps in the ascending colon measuring between 7 mm to 10 mm in size status post polypectomy 5 mm sigmoid colon polyp status post cold snare polypectomy 1 cm distal rectal polyp status post snare polypectomy RECOMMENDATIONS: Findings of this examination were discussed with the patient as well as his family.. He was advised to follow-up with the biopsy results. He will be seen in the office in 1 week.
[2024-06-25 13:04] VITALS: BP 131/78; PULSE 73; RESP 15
== END ==
LOC: ORWHC2ENDO 11:07
PROVIDERS: ATTEND Internal Medicine Gastroenterology
DX: D12.2 Benign neoplasm of ascending colon (principal); D12.8 Benign neoplasm of rectum; E78.5 Hyperlipidemia, unspecified; I48.91 Unspecified atrial fibrillation; E11.9 Type 2 diabetes mellitus without complications; N42.9 Disorder of prostate, unspecified; Z91.041 Radiographic dye allergy status; Z79.02 Long term (current) use of antithrombotics/antiplatelets; Z79.84 Long term (current) use of oral hypoglycemic drugs; Z79.899 Other long term (current) drug therapy
CPT/HCPCS: 88305; 45380; 45385; 45381; J2704; 88341; 88342

== ENCOUNTER → 2024-06-30 | Outpatient (CLI) | payer MEDICARE, BC ==
--- NOTE | 2024-06-30 19:18 | CT ---
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 TECHNIQUE: Axial CT abdomen pelvis wo con;Sagittal and coronal reformats were created on a separate workstation. Contrast used: mL of , (none if empty) Oral contrast used: with Oral Contrast (none if empty) CT DLP: 792.7 mGycm, Automated exposure control for dose reduction was used. FINDINGS: LOWER CHEST: The heart is mildly enlarged for size. ABDOMEN LIVER: Unremarkable GALLBLADDER AND BILE DUCTS: Layering densities in the gallbladder lumen. PANCREAS: Unremarkable. SPLEEN: Unremarkable. ADRENAL GLANDS: Unremarkable. KIDNEYS AND URETERS: Nonobstructing bilateral calculi measuring up to 4 mm and 22 mm on the left. PELVIS BLADDER: No evidence for wall thickening or mass given limitations of exam. REPRODUCTIVE: Prostate is enlarged in size measuring 5.5 Cm in transverse dimension. Coarse consultat ions present. ABDOMEN & PELVIS STOMACH AND BOWEL: No evidence of bowel obstruction. Redundant colon with large amount stool. Small h iatal hernia. Area of focal wall thickening in the transverse colon likely correlating to patient's p rimary malignancy series 3 image 28 with mesenteric lymph node measuring 9 mm. PERITONEUM/RETROPERITONEUM: No evidence of pneumoperitoneum or free fluid. VASCULATURE: No evidence of aortic aneurysm. MUSCULOSKELETAL: No acute osseous abnormalities, fixation of L5-S1 hardware appears intact. Lumpectom y changes at L5. LYMPH NODES: No gross evidence for lymphadenopathy. SOFT TISSUE/ABDOMINAL WALL: Fat inguinal hernias. IMPRESSION: 1. Transverse colon wall thickening likely representing area of malignancy following colonoscopy. Th ere is at least one mesenteric prominent lymph node in multiple small lymph nodes present in this reg ion suggesting metastatic disease. 2. No evidence for acute abdominal process. 3. Bladder diverticulum. Given enlarged prostate correlate for chronic bladder outlet obstruction. 4. Bilateral nonobstructing renal calculi. 5. Redundant colon with large amount of stool. 6. Prostatomegaly correlate serum PSA. 7. Cholelithiasis. 8. Mild cardiomegaly. 9. Small hiatal hernia. [facility], Workstation: [id number], 06/30/2024 7:16 PM
== END | disposition home or self-care (01) ==
LOC: RADCTMAIN 16:22
PROVIDERS: ATTEND Internal Medicine Gastroenterology
DX: C18.4 Malignant neoplasm of transverse colon (principal); N32.3 Diverticulum of bladder; N40.0 Benign prostatic hyperplasia without lower urinary tract symptoms; N20.0 Calculus of kidney; Q43.8 Other specified congenital malformations of intestine; K80.20 Calculus of gallbladder without cholecystitis without obstruction; I51.7 Cardiomegaly; K44.9 Diaphragmatic hernia without obstruction or gangrene
CPT/HCPCS: 74176

== ENCOUNTER → 2024-08-04 | Outpatient (CLI) | payer MEDICARE, BC ==
--- NOTE | 2024-08-04 10:27 | CT ---
EXAMINATION TYPE: CT chest wo con CT DLP: 443.50 mGycm, Automated exposure control for dose reduction was used. DATE OF EXAM: 08/04/2024 9:48 AM COMPARISON: Chest radiograph 11/03/2020, CT abdomen and pelvis 06/30/2024. CLINICAL INDICATION:Male, 78 years old with history of C18.9 COLON CANCER; [facility], Pre op clearance for colon ca sx TECHNIQUE: Multiple axial images were obtained through the chest without IV contrast. Lack of IV or o ral contrast limits evaluation of solid and hollow organ viscera. . Coronal and sagittal reformats re viewed. FINDINGS: LUNGS/ PLEURA: No pleural effusion, pneumothorax, or focal consolidation. Linear scarring and/or atel ectasis within the bilateral lower lobes. Small fat filled right Bochdalek hernia. Left lower lobe s ubpleural calcified granuloma. No suspicious pulmonary nodule or mass. AIRWAY: Patent and unremarkable.. HEART: The heart is mildly increased in size..Trace pericardial effusion. Small coronary artery calci fications. MEDIASTINUM: No gross evidence of adenopathy. VASCULATURE: No aortic aneurysm. Mild atherosclerotic calcification of the aorta and its branches. MUSCULOSKELETAL: Mild disc degeneration changes are present throughout the thoracolumbar spine. Massi ve osseous lesion. No acute osseous abnormality. SOFT TISSUES/LYMPH NODES: Bilateral gynecomastia. LOWER NECK: No significant findings. UPPER ABDOMEN: Cholelithiasis. Small hiatal hernia. IMPRESSION: 1. No CT evidence for definitive metastasis within the chest. 2. Cholelithiasis. [facility], , 08/04/2024 10:25 AM
== END | disposition home or self-care (01) ==
LOC: RADCTMAIN 09:17
PROVIDERS: ATTEND Surgery
DX: C18.9 Malignant neoplasm of colon, unspecified (principal); K80.20 Calculus of gallbladder without cholecystitis without obstruction
CPT/HCPCS: 71250; 82378

== ENCOUNTER → 2024-08-09 | Outpatient (CLI) | payer MEDICARE, BC ==
[2024-08-09 15:19] LABS: HCT 44.7 % (39.6-50.0); HGB 13.9 g/dL (13.0-17.0); MCH 26.5 pg (27.0-32.0); MCHC 31.1 g/dL (32.0-37.0); MCV 85.1 FL (80.0-97.0); Mean Platelet Volume 10.4 FL (9.5-12.2); NRBC Per 100 WBC 0 X 10*3/uL (0.00-0.01); Platelet Count 295 X 10*3/uL (140-440); RBC 5.25 X 10*6/uL (4.40-5.60); RDW 16.5 % (11.5-14.5); WBC 6.58 X 10*3/uL (4.50-10.00)
[2024-08-09 15:42] LABS: BUN/Creat Ratio 16.38 Ratio (12.00-20.00); Blood Urea Nitrogen 13.1 mg/dL (9.0-27.0); Calcium 9.4 mg/dL (8.7-10.3); Carbon Dioxide 25.9 mmol/L (21.6-31.8); Chloride 105 mmol/L (96-109); Glucose 103 mg/dL (70-110); Potassium 4.8 mmol/L (3.5-5.5); Sodium 141 mmol/L (135-145)
== END | disposition home or self-care (01) ==
LOC: LABPAT 09:05
PROVIDERS: ATTEND Surgery
DX: Z01.812 Encounter for preprocedural laboratory examination (principal)
CPT/HCPCS: 80048; 83036; 85027; 86850; 86900; 86901

== ENCOUNTER 2024-09-10 16:07 | Emergency (ER) | payer MEDICARE, BC ==
[2024-09-10 17:22] VITALS: BP 115/60; PULSE 72; RESP 20; TEMP 97.9
--- NOTE | 2024-09-10 17:32 | ED ---
Male Urogenital HPI - General Source: patient, RN notes reviewed Mode of arrival: ambulatory Limitations: no limitations - History of Present Illness Location: penis <Jay Rdz - Last Filed: 09/10/24 17:22> <Christiano Emmanuel - Last Filed: 09/10/24 18:21> - General Stated complaint: Urogenital Time Seen by Provider: 09/10/24 16:21 - History of Present Illness Initial comments: Quick note: This is an 78-year-old male with history of colon cancer presenting with for swelling and erythema of penis x 10 days. Patient endorses recent colon cancer surgery prior to start of symptoms on 08/23/2024. Describes pain as burning. Endorses receiving Bactrim DS several days prior with no improvement of symptoms. states patient is currently on Coumadin. Denies dysuria, urethral discharge or increased urinary frequency. (Jay Rdz) Patient has had pain and swelling of the tip of his penis for the past 1 to 2 weeks. He was put on Bactrim with concern for infection. This has not improved his symptoms. He has no dysuria. He is eating and drinking well. Normal bowel movements. He is healing well from his surgery. (Christiano Emmanuel) - Related Data Home Medications Medication Instructions Recorded Confirmed Digoxin [Lanoxin] 250 mcg PO DAILY 09/23/14 06/25/24 Warfarin [Coumadin] 5 mg PO DAILY 09/23/14 06/25/24 Tamsulosin HCl [Flomax] 0.4 mg PO DAILY 06/12/17 06/25/24 Atorvastatin [Lipitor] 40 mg PO DAILY 11/20/22 06/25/24 Empagliflozin [Jardiance] 10 mg PO DAILY 11/20/22 06/25/24 Verapamil HCl [Verapamil ER] 240 mg PO DAILY 11/20/22 06/25/24 Finasteride [Proscar] 5 mg PO DAILY 06/23/24 06/25/24 Previous Rx's Medication Instructions Recorded Clotrimazole Cream [Lotrimin Cream] 1 applic TOPICAL BID #15 gm 09/10/24 Mupirocin 2% Oint [Bactroban 2% 1 applic TOPICAL TID #22 gm 09/10/24 Oint] Allergies Allergy/AdvReac Type Severity Reaction Status Date / Time Iodinated Contrast Media Allergy Unknown Verified 09/10/24 17:17 [Iodinated Contrast- Oral and IV Dye] Review of Systems ROS Other: All systems not noted in ROS Statement are negative. <Jay Rdz - Last Filed: 09/10/24 17:22> ROS Other: All systems not noted in ROS Statement are negative. <Christiano Emmanuel - Last Filed: 09/10/24 18:21> ROS Statement: Those systems with pertinent positive or pertinent negative responses have been documented in the HPI. Past Medical History Past Medical History: Atrial Fibrillation, Deep Vein Thrombosis (DVT), Prostate Disorder History of Any Multi-Drug Resistant Organisms: None Reported Past Surgical History: Back Surgery, Joint Replacement, Orthopedic Surgery Additional Past Surgical History / Comment(s): eren knee replacement, COLONOSCOPY, LT ROTATOR CUFF REPAIR Past Anesthesia/Blood Transfusion Reactions: No Reported Reaction Smoking Status: Never smoker - Past Family History Mother Family Medical History: No Reported History Additional Family Medical History / Comment(s): Mother is with history of coronary artery disease and borderline diabetes. No history of cancers or strokes. Father Additional Family Medical History / Comment(s): Father is with history of coronary artery disease. No stroke or cancer. Brother(s) Additional Family Medical History / Comment(s): Patient had 2 brothers and one is from coronary artery disease and one from Parkinson's disease. Patient has 4 sisters and one has coronary artery disease. Patient has 3 sons with no major medical problems and no daughters. <Jay Rdz - Last Filed: 09/10/24 17:22> General Exam <KajalJay - Last Filed: 09/10/24 17:22> General appearance: alert, in no apparent distress Head exam: Present: atraumatic, normocephalic Eye exam: Present: normal appearance, PERRL ENT exam: Present: normal exam Neck exam: Present: normal inspection Respiratory exam: Present: normal lung sounds bilaterally. Absent: respiratory distress, wheezes Cardiovascular Exam: Present: regular rate, normal rhythm GI/Abdominal exam: Present: soft, other (Midline incision is well-healed). Absent: distended, guarding exam: Present: other (Inflammation and erythema of the glans and foreskin. There is no phimosis no paraphimosis). Absent: scrotal swelling Neurological exam: Present: alert, oriented X3 Psychiatric exam: Present: normal affect, normal mood Skin exam: Present: warm, dry <Christiano Emmanuel - Last Filed: 09/10/24 18:21> - General Exam Comments Initial Comments: Visual Physical Exam Vital signs reviewed General: Well-appearing, nontoxic, no acute distress. Head: Normocephalic, atraumatic Eyes: PERRLA, EOMI ENT: Airway patent Chest: Nonlabored breathing Skin: No visual rash, normal skin tone Neuro: Alert and oriented 3 Musculoskeletal: No gross abnormalities (Jay Rdz) Course Vital Signs 09/10/24 17:17 Temperature 97.9 F Pulse Rate 72 Respiratory 20 Rate Blood Pressure 115/60 O2 Sat by Pulse 97 Oximetry Medical Decision Making <Jay Rdz - Last Filed: 09/10/24 17:22> <Christiano Emmanuel - Last Filed: 09/10/24 18:21> - Medical Decision Making I completed the quick note portion of this chart signed LACI Montesinos (Jay Rdz) Was pt. sent in by a medical professional or institution (SEBASTIAN Cedeno, ADVERTISING OPERATIONS COORDINATOR, urgent care, hospital, or [facility]...) When possible be specific @ -No Did you speak to anyone other than the patient for history (EMS, parent, family, police, friend...)? What history was obtained from this source @ -No Did you review nursing and triage notes (agree or disagree)? Why? @ -I reviewed and agree with nursing and triage notes Were old charts reviewed (outside hosp., previous admission, EMS record, old EKG, old radiological studies, urgent care reports/EKG's, [facility] records)? Report findings @ -No old charts were reviewed Differential Diagnosis balanitis, balanoposthitis, phimosis, paraphimosis, UTI EKG interpreted by me (3pts min.). @ -As above X-rays interpreted by me (1pt min.). @ -None done CT interpreted by me (1pt min.). @ -None done U/S interpreted by me (1pt. min.). @ -None done What testing was considered but not performed or refused? (CT, X-rays, U/S, labs)? Why? @ -None What meds were considered but not given or refused? Why? @ -None Did you discuss the management of the patient with other professionals (professionals i.e. , PA, ADVERTISING OPERATIONS COORDINATOR, lab, RT, psych nurse, healthcare social worker, raised printer, teacher, operations officer afloat, director case management)? Give summary @ -No Was smoking cessation discussed for >3mins.? @ -No Was critical care preformed (if so, how long)? @ -No Were there social determinants of health that impacted care today? How? (Homelessness, low income, unemployed, alcoholism, drug addiction, transportat ion, low edu. Level, literacy, decrease access to med. care, group home, rehab)? @ -No Was there de-escalation of care discussed even if they declined (Discuss DNR or withdrawal of care, Hospice)? DNR status @ -No What co-morbidities impacted this encounter? (DM, HTN, Smoking, COPD, CAD, Cancer, CVA, ARF, Chemo, Hep., AIDS, mental health diagnosis, sleep apnea, morbid obesity)? @ -None Was patient admitted / discharged? Hospital course, mention meds given and route, prescriptions, significant lab abnormalities, going to OR and other pertinent info. @ -[78-year-old male with inflammation of the glans and foreskin. Patient had recent abdominal surgery which is well-healing with no issues. Patient's presentation consistent with balanoposthitis. He is instructed on hygiene, he is prescribed mupirocin as well as clotrimazole ointment. He is instructed on return parameters for phimosis or paraphimosis. Undiagnosed new problem with uncertain prognosis? @ -No Drug Therapy requiring intensive monitoring for toxicity (Heparin, Nitro, Insulin, Cardizem)? @ -No Were any procedures done? @ -No Diagnosis/symptom? @ -balanopostatitis Acute, or Chronic, or Acute on Chronic? @Acute Uncomplicated (without systemic symptoms) or Complicated (systemic symptoms)? @ -Default Side effects of treatment? @ -No Exacerbation, Progression, or Severe Exacerbation? @ -No Poses a threat to life or bodily function? How? (Chest pain, [place], [place], pneumonia, PE, COPD, DKA, ARF, appy, cholecystitis, CVA, Diverticulitis, Homicidal, Suicidal, threat to staff... and all critical care pts) @ -No (Christiano Emmanuel) Disposition <Jay Rdz - Last Filed: 09/10/24 17:22> Is patient prescribed a controlled substance at d/c from ED?: No Time of Disposition: 18:10 <Christiano Emmanuel - Last Filed: 09/10/24 18:21> Clinical Impression: Balanoposthitis, Balanitis Disposition: HOME SELF-CARE Condition: Good Instructions (If sedation given, give patient instructions): Balanitis (ED), Balanoposthitis (ED) Prescriptions: Mupirocin 2% Oint [Bactroban 2% Oint] 1 applic TOPICAL TID #22 gm Clotrimazole Cream [Lotrimin Cream] 1 applic TOPICAL BID #15 gm Referrals: Kalyani Carranza MD [Primary Care Provider] - 1-2 days
== END 2024-09-10 18:24 | disposition home or self-care (01) ==
LOC: EC 16:07
DX: N48.1 Balanitis (principal); Z91.041 Radiographic dye allergy status
CPT/HCPCS: 99283

== ENCOUNTER → 2024-09-20 | Outpatient (CLI) | payer MEDICARE, BC ==
[2024-09-20 09:44] LABS: Appearance,Urine Clear (Clear); Bilirubin,Urine Negative (Negative); Blood,Urine Negative (Negative); Color,Urine Light Yellow; Glucose,Urine (UA) 4+ (Negative); Ketones,Urine Negative (Negative); Leukocyte Esterase,Urine Small (Negative); Mucus,Urine Occasional /hpf; Nitrite,Urine Negative (Negative); PH, Urine 5.5 (5.0-8.0); Protein,Urine Negative (Negative); RBC,Urine 1 /hpf (0-5); Specific Gravity,Urine 1.019 (1.001-1.035); Squamous Epithelial Cell,Urine 1 /hpf (0-4); Urobilinogen,Urine <2.0 mg/dL (<2.0); WBC,Urine 3 /hpf (0-5)
[2024-09-20 16:56] LABS: HCT 40.7 % (39.6-50.0); HGB 12.7 g/dL (13.0-17.0); MCH 27.4 pg (27.0-32.0); MCHC 31.2 g/dL (32.0-37.0); MCV 87.7 FL (80.0-97.0); Mean Platelet Volume 10.8 FL (9.5-12.2); NRBC Per 100 WBC 0 X 10*3/uL (0.00-0.01); Platelet Count 280 X 10*3/uL (140-440); RBC 4.64 X 10*6/uL (4.40-5.60); RDW 16.9 % (11.5-14.5); WBC 5.76 X 10*3/uL (4.50-10.00)
[2024-09-20 17:38] LABS: ALT 25 U/L (10-49); AST 27 U/L (14-35); Albumin 3.7 g/dL (3.8-4.9); Albumin/Globulin Ratio 1.37 Ratio (1.60-3.17); Alkaline Phosphatase 76 U/L (41-126); BUN/Creat Ratio 21.29 Ratio (12.00-20.00); Blood Urea Nitrogen 14.9 mg/dL (9.0-27.0); Calcium 8.9 mg/dL (8.7-10.3); Chloride 106 mmol/L (96-109); Chol/HDL Ratio 2.29 Ratio; Creatine Kinase 33 U/L (35-257); Globulin 2.7 g/dL (1.6-3.3); Glucose 95 mg/dL (70-110); LDL Cholesterol,Calculated 43.4 mg/dL (0.0-131.0); Potassium 4.6 mmol/L (3.5-5.5); Sodium 142 mmol/L (135-145); Total Bilirubin 0.7 mg/dL (0.3-1.2); Total Protein 6.4 g/dL (6.2-8.2)
== END | disposition home or self-care (01) ==
LOC: LABWHC1 08:47
PROVIDERS: ATTEND Internal Medicine
DX: I10 Essential (primary) hypertension (principal); E78.2 Mixed hyperlipidemia
CPT/HCPCS: 36415; 80053; 80061; 81001; 82550; 83735; 84443; 84550; 85027

== ENCOUNTER 2024-11-14 10:11 | Emergency (ER) | payer MEDICARE, BC ==
--- NOTE | 2024-11-14 10:51 | ED ---
General Adult HPI - General Chief complaint: Abdominal Pain Stated complaint: constipation Time Seen by Provider: 11/14/24 10:23 Source: patient, family, EMS, RN notes reviewed Mode of arrival: EMS Limitations: no limitations - History of Present Illness Initial comments: This is a 79-year-old male with stage III colon cancer on biweekly chemotherapy infusion, follows with Dr. Bullock, presented to the emergency department via EMS for complaint of constipation. Patient states that last bowel movement was yesterday. States that he has had minimal passage of gas. He denies abdominal pain, abdominal distention, nausea, vomiting. at bedside states that she attempted to do a enema at home with minimal to no success. Patient states that he has been experiencing constipation since bowel resection surgery in August. Denies hematochezia, melena, urinary complaints. Denies fevers, chills. - Related Data Home Medications Medication Instructions Recorded Confirmed Digoxin [Lanoxin] 250 mcg PO DAILY 09/23/14 10/05/24 Warfarin [Coumadin] 5 mg PO DAILY 09/23/14 10/05/24 Tamsulosin HCl [Flomax] 0.4 mg PO DAILY 06/12/17 10/01/24 Atorvastatin [Lipitor] 40 mg PO DAILY 11/20/22 10/05/24 Empagliflozin [Jardiance] 10 mg PO DAILY 11/20/22 10/05/24 Verapamil HCl [Verapamil ER] 240 mg PO DAILY 11/20/22 10/01/24 Finasteride [Proscar] 5 mg PO DAILY 06/23/24 10/01/24 Previous Rx's Medication Instructions Recorded Clotrimazole Cream [Lotrimin Cream] 1 applic TOPICAL BID #15 gm 09/10/24 Allergies Allergy/AdvReac Type Severity Reaction Status Date / Time Iodinated Contrast Media Allergy Unknown Verified 11/14/24 10:18 [Iodinated Contrast- Oral and IV Dye] Review of Systems ROS Statement: Those systems with pertinent positive or pertinent negative responses have been documented in the HPI. ROS Other: All systems not noted in ROS Statement are negative. Past Medical History Past Medical History: Atrial Fibrillation, Cancer, Deep Vein Thrombosis (DVT), Hyperlipidemia, Hypertension, Prostate Disorder Additional Past Medical History / Comment(s): colon cancer, History of Any Multi-Drug Resistant Organisms: None Reported Past Surgical History: Back Surgery, Bowel Resection, Joint Replacement, Orthopedic Surgery Additional Past Surgical History / Comment(s): eren knee replacement, COLONOSCOPY, LT ROTATOR CUFF REPAIR, Bowel resection 08/23/24 Past Anesthesia/Blood Transfusion Reactions: No Reported Reaction Past Psychological History: No Psychological Hx Reported Smoking Status: Never smoker Past Alcohol Use History: Rare Past Drug Use History: None Reported - Past Family History Mother Family Medical History: No Reported History Additional Family Medical History / Comment(s): Mother is with history of coronary artery disease and borderline diabetes. No history of cancers or strokes. Father Additional Family Medical History / Comment(s): Father is with history of coronary artery disease. No stroke or cancer. Brother(s) Additional Family Medical History / Comment(s): Patient had 2 brothers and one is from coronary artery disease and one from Parkinson's disease. Patient has 4 sisters and one has coronary artery disease. Patient has 3 sons with no major medical problems and no daughters. General Exam Limitations: no limitations General appearance: alert, in no apparent distress ENT exam: Present: normal exam, mucous membranes moist Neck exam: Present: normal inspection. Absent: tenderness, meningismus, lymphadenopathy Respiratory exam: Present: normal lung sounds bilaterally. Absent: respiratory distress, wheezes, rales, rhonchi, stridor Cardiovascular Exam: Present: regular rate, normal rhythm, normal heart sounds. Absent: systolic murmur, diastolic murmur, rubs, gallop, clicks exam: Absent: testicular tenderness, scrotal swelling, vertical testicular lie, circumcision Extremities exam: Present: normal inspection, full ROM, normal capillary refill. Absent: tenderness, pedal edema, joint swelling, calf tenderness Back exam: Present: normal inspection Course Vital Signs 11/14/24 11/14/24 10:15 12:28 Temperature 97.3 F L 97.9 F Pulse Rate 61 76 Respiratory 18 20 Rate Blood Pressure 122/68 117/64 O2 Sat by Pulse 100 99 Oximetry Medical Decision Making - Medical Decision Making Was pt. sent in by a medical professional or institution (, PA, ASL INTERPRETER, urgent care, hospital, or jail...) When possible be specific @ -No Did you speak to anyone other than the patient for history (EMS, parent, family, police, friend...)? What history was obtained from this source @ -No Did you review nursing and triage notes (agree or disagree)? Why? @ -I reviewed and agree with nursing and triage notes Were old charts reviewed (outside hosp., previous admission, EMS record, old EKG, old radiological studies, urgent care reports/EKG's, jail records)? Report findings @ -No old charts were reviewed Differential Diagnosis (chest pain, altered mental status, abdominal pain women, abdominal pain men, vaginal bleeding, weakness, fever, dyspnea, syncope, headache, dizziness, GI bleed, back pain, seizure, CVA, palpatations, mental health, musculoskeletal)? @ -Differential Abdominal Pain Men: Appendicitis, cholecystitis, diverticulosis, ischemic bowel, pancreatitis, hepatitis, UTI, gastroenteritis, AAA, incarcerated hernia, bowel obstruction, constipation, inflammatory bowel, hepatitis, peptic ulcer disease, splenic infarction, perforated viscus, testicular torsion, this is not meant to be an all-inclusive list EKG interpreted by me (3pts min.). @ -None X-rays interpreted by me (1pt min.). @ -X-ray KUB reveals a nonspecific abdomen without evidence of free air or obstruction, no significant feces within the colon. CT interpreted by me (1pt min.). @ -None done U/S interpreted by me (1pt. min.). @ -None done What testing was considered but not performed or refused? (CT, X-rays, U/S, labs)? Why? @ -None What meds were considered but not given or refused? Why? @ -None Did you discuss the management of the patient with other professionals (professionals i.e. , PA, ASL INTERPRETER, lab, RT, psych nurse, social services designee, instrumentation engineering technician, teacher, truant officer, director of casework)? Give summary @ -No Was smoking cessation discussed for >3mins.? @ -No Was critical care preformed (if so, how long)? @ -No Were there social determinants of health that impacted care today? How? (Ho melessness, low income, unemployed, alcoholism, drug addiction, transportation, low edu. Level, literacy, decrease access to med. care, shelter, rehab)? @ -No Was there de-escalation of care discussed even if they declined (Discuss DNR or withdrawal of care, Hospice)? DNR status @ -No What co-morbidities impacted this encounter? (DM, HTN, Smoking, COPD, CAD, Cancer, CVA, ARF, Chemo, Hep., AIDS, mental health diagnosis, sleep apnea, morbid obesity)? @ -None Was patient admitted / discharged? Hospital course, mention meds given and route, prescriptions, significant lab abnormalities, going to OR and other pertinent info. @ -Discharge. 79-year-old male presenting with complaint of constipation. Abdominal examination completed with no acute findings. Abdomen is soft and nontender. X-ray of the abdomen no acute process. While patient has been the emergency department he has had a small passage of stool/bowel movement. Additionally, patient states that he has been experiencing mild penile discomfort. At physical examination with nursing blending line attendant, [employer], at bedside reveal phimosis. Patient is able to urinate. Recommend that he follow-up outpatient with urology for further evaluation of phimosis. In regard to patient's constipation, he is provided with magnesium citrate. Recommend that patient increase oral fiber and fluid intake in addition to using MiraLAX and stool softeners. Return parameters discussed. Case discussed with Dr. Mederos Undiagnosed new problem with uncertain prognosis? @ -No Drug Therapy requiring intensive monitoring for toxicity (Heparin, Nitro, Insulin, Cardizem)? @ -No Were any procedures done? @ -No Diagnosis/symptom? @ -Constipation, phimosis Acute, or Chronic, or Acute on Chronic? @ -Acute Uncomplicated (without systemic symptoms) or Complicated (systemic symptoms)? @ -Uncomplicated Side effects of treatment? @ -No Exacerbation, Progression, or Severe Exacerbation? @ -No Poses a threat to life or bodily function? How? (Chest pain, [place], AL, pneumonia, PE, COPD, DKA, ARF, appy, cholecystitis, CVA, Diverticulitis, Homicidal, Suicidal, threat to staff... and all critical care pts) @ -No Disposition Clinical Impression: Phimosis of penis, Constipation Disposition: HOME SELF-CARE Condition: Good Instructions (If sedation given, give patient instructions): Constipation (ED), Phimosis (ED) Additional Instructions: Please return to the Emergency Department if symptoms worsen or any other concerns. As discussed, follow-up within the next 1 to 2 days with urology for further evaluation. Is patient prescribed a controlled substance at d/c from ED?: No Referrals: Kalyani Carranza MD [Primary Care Provider] - 1-2 days Time of Disposition: 11:36
--- NOTE | 2024-11-14 11:06 | XR ---
KUB. CLINICAL INDICATION: Male, 79 years old with history of constipation, Abdominal pain. COMPARISON: None. TECHNIQUE: 2 upright views of the abdomen were obtained. FINDINGS: The lung bases are clear. There is no free intraperitoneal air beneath the diaphragm. The bowel gas pattern is nonspecific and there is no evidence of obstruction. There is mild stool in the colon. There is no impacted stool within the rectum. No suspicious abdominal or pelvic calcifications are seen. There is fusion at the L4-5 level. No focal osseous lesions are seen. IMPRESSION: Nonspecific abdomen without evidence of free air or obstruction. No significant feces within the colo n. [facility], Workstation: [facility], 11/14/2024 11:04 AM
[2024-11-14] MEDS: NA PHOS,M-B/NA PHOS,DI-BA 133 ML ENEMA RECTAL STA (11:16)
[2024-11-14] MEDS: MAGNESIUM CITRATE 296 ML BOTTLE PO ONE (12:25)
[2024-11-14 12:29] VITALS: BP 117/64; PULSE 76; RESP 20; TEMP 97.9
== END 2024-11-14 12:29 | disposition home or self-care (01) ==
LOC: EC 10:11
DX: N47.1 Phimosis (principal); K59.00 Constipation, unspecified; C18.9 Malignant neoplasm of colon, unspecified; Z91.041 Radiographic dye allergy status
CPT/HCPCS: 74018; 99284

== ENCOUNTER → 2025-02-04 | Outpatient (CLI) | payer MEDICARE, BC ==
--- NOTE | 2025-02-04 15:08 | NM ---
EXAMINATION TYPE: NM parathyroid w/spect DATE OF EXAM: 02/04/2025 COMPARISON: NONE CLINICAL INDICATION: Male, 79 years old with history of R79.89 elevated parathyroid hormone; TECHNIQUE: Following administration of 24.0 mCi Tc99m Sestamibi. Anterior projection images of the neck and ches t were obtained 15 minutes and 3 hours post injection. SPECT images of the neck and chest were obtai brittaney and reconstructed in three axes. FINDINGS: Thyroid tracer washout: Delayed images demonstrate near-complete tracer washout from the thyroid. Parathyroid uptake: None. The two-hour delayed images do not demonstrate any focal abnormal persisten t uptake in the region of the parathyroid glands to suggest parathyroid adenoma. Normal uptake: There is physiological tracer uptake in the myocardium, liver, salivary glands, and th yroid gland. IMPRESSION: Normal parathyroid imaging study. No evidence for mediastinal uptake to suggest mediastinal parathyro id adenoma [facility], , 02/04/2025 3:06 PM
== END | disposition home or self-care (01) ==
LOC: RADNMMAIN 10:55
PROVIDERS: ATTEND Internal Medicine
DX: R79.89 Other specified abnormal findings of blood chemistry (principal)
CPT/HCPCS: 78071; A9500